=== PATIENT | female | born 1960 | race Caucasian/White ===

== ENCOUNTER 2024-09-25 12:17 | Inpatient (IN) | payer MEDICARE, OTHER ==
--- NOTE | 2024-09-25 13:12 | ED ---
Dizziness HPI - General Source: patient, RN notes reviewed Mode of arrival: wheelchair Limitations: no limitations - History of Present Illness MD Complaint: dizziness <Tony Lara - Last Filed: 09/25/24 13:08> - General Source: patient, RN notes reviewed Limitations: no limitations <Estiven Alvarado - Last Filed: 09/25/24 17:18> - General Chief Complaint: Dizziness Stated Complaint: dizziness,falls Time Seen by Provider: 09/25/24 12:30 - History of Present Illness Initial Comments: Quick note: This is a 64-year-old female presenting for constant dizziness x 2 days. Patient states she suffered a an unwitnessed fall with possible loss of consciousness last week Sunday and twice the next day on in her her apartment which has thin carpet, striking her head with significant neck and back pain as well as ongoing headache since that time. Patient endorses history of recurring dizziness since her COVID diagnosis years ago but has been able to live independently until worsening of symptoms the past several days. Patient states she sees a neurologist regarding bilateral hand paresthesia but is not normally evaluated for the intermittent dizziness. Patient states she also has a pain stimulator. (Tony Lara) Patient is a 64-year-old female present to the emergency department with concerns with dizziness. Patient has had some constant dizziness for the past several years since COVID-19 infection. Patient states symptoms worsened the past week. Patient did have 2 falls and does not recall them and questions if she passed out. Patient describes dizziness as a spinning type sensation. Patient did not hurt herself does not feel she broke anything during the fall. Patient states any little movements makes her dizziness worsen. Otherwise no confusion or weakness. Patient does have occasional blurred vision. (Estiven Alvarado) - Related Data Home Medications Medication Instructions Recorded Confirmed ALPRAZolam [Xanax] 0.5 mg PO HS 09/25/24 09/25/24 Dapagliflozin Propanediol [Farxiga] 5 mg PO HS 09/25/24 09/25/24 Dulaglutide [Trulicity] 3 mg SQ MO 09/25/24 09/25/24 Pregabalin [Lyrica] 100 mg PO BID 09/25/24 09/25/24 buPROPion XL [Wellbutrin XL] 300 mg PO DAILY 09/25/24 09/25/24 sitaGLIPtin [Januvia] 100 mg PO HS 09/25/24 09/25/24 Allergies Allergy/AdvReac Type Severity Reaction Status Date / Time amitriptyline AdvReac Nausea & Verified 09/25/24 16:31 Vomiting gabapentin AdvReac Nausea & Verified 09/25/24 16:31 Vomiting Review of Systems ROS Other: All systems not noted in ROS Statement are negative. <JaneTony - Last Filed: 09/25/24 13:08> ROS Other: All systems not noted in ROS Statement are negative. Constitutional: Denies: fever Eyes: Denies: eye pain ENT: Denies: ear pain Respiratory: Denies: cough, dyspnea Cardiovascular: Denies: chest pain Musculoskeletal: Denies: back pain Neurological: Reports: as per HPI, vertigo. Denies: headache <ChristianoEstiven - Last Filed: 09/25/24 17:18> ROS Statement: Those systems with pertinent positive or pertinent negative responses have been documented in the HPI. Past Medical History Past Medical History: Diabetes Mellitus Additional Past Medical History / Comment(s): chronic nerve pain (stimulator in place) History of Any Multi-Drug Resistant Organisms: None Reported Past Surgical History: Cholecystectomy Additional Past Surgical History / Comment(s): toe surgery, nerve biopsy, PE removal Past Psychological History: PTSD Smoking Status: Former smoker Past Alcohol Use History: None Reported Past Drug Use History: Marijuana <Tony Lara - Last Filed: 09/25/24 13:08> General Exam Limitations: no limitations <Tony Lara - Last Filed: 09/25/24 13:08> Limitations: no limitations General appearance: alert, in no apparent distress Head exam: Present: atraumatic, normocephalic Eye exam: Present: normal appearance, PERRL, EOMI. Absent: nystagmus Neck exam: Present: normal inspection, full ROM. Absent: tenderness Respiratory exam: Present: normal lung sounds bilaterally Cardiovascular Exam: Present: regular rate, normal rhythm GI/Abdominal exam: Present: soft. Absent: tenderness Extremities exam: Present: normal inspection Neurological exam: Present: alert, oriented X3, CN II-XII intact. Absent: motor sensory deficit Expanded Neurological exam: Present: protecting the airway Speech: Present: fluid speech Cranial nerves: EOM's Intact: Normal, Facial Sensation: Normal Motor strength exam: RUE: 5, LUE: 5, RLE: 5, LLE: 5 Eye Response: (4) open spontaneously Motor Response: (6) obeys commands Verbal Response: (5) oriented Psychiatric exam: Present: normal affect, normal mood Skin exam: Present: normal color <Estiven Alvarado - Last Filed: 09/25/24 17:18> - General Exam Comments Initial Comments: Visual Physical Exam Vital signs reviewed General: Well-appearing, nontoxic. Patient is distressed and tearful Head: Normocephalic, atraumatic Eyes: PERRLA, EOMI ENT: Airway patent Chest: Nonlabored breathing Skin: No visual rash, normal skin tone Neuro: Alert and oriented 3 Musculoskeletal: No gross abnormalities (Tony Lara) Course Vital Signs 09/25/24 09/25/24 12:19 16:34 Temperature 97.8 F 97.8 F Pulse Rate 94 78 Respiratory 18 18 Rate Blood Pressure 121/83 129/76 O2 Sat by Pulse 99 100 Oximetry EKG Findings - EKG Results: EKG: interpreted by ERMD, sinus rhythm, normal axis, normal QRS, normal ST/T <Estiven Alvarado - Last Filed: 09/25/24 17:18> Medical Decision Making <Tony Lara - Last Filed: 09/25/24 13:08> - Lab Data Result diagrams: 09/25/24 13:37 09/25/24 13:37 <Estiven Alvarado - Last Filed: 09/25/24 17:18> - Medical Decision Making I completed the quick note portion of this chart signed GENIA Carl (Tony Lara) Was pt. sent in by a medical professional or institution (KODY Mcelroy, POSTAL SUPERVISOR, urgent care, hospital, or longterm...) When possible be specific @ -No Did you speak to anyone other than the patient for history (EMS, parent, family, police, friend...)? What history was obtained from this source @ -No Did you review nursing and triage notes (agree or disagree)? Why? @ -I reviewed and agree with nursing and triage notes Were old charts reviewed (outside hosp., previous admission, EMS record, old EKG, old radiological studies, urgent care reports/EKG's, longterm records)? Report findings @ -No old charts were reviewed Differential Diagnosis (chest pain, altered mental status, abdominal pain women, abdominal pain men, vaginal bleeding, weakness, fever, dyspnea, syncope, headache, dizziness, GI bleed, back pain, seizure, CVA, palpatations, mental health, musculoskeletal)? @ -Differential Dizziness: Benign paroxysmal positional Vertigo, Meniere's disease, otitis media, acoustic neuroma, vertebrobasilar insufficiency, cerebellar stroke, encephalitis, hypovolemic, arrhythmia, coronary artery syndrome, anemia, this is not meant to be an all-inclusive list EKG interpreted by me (3pts min.). @ -As above X-rays interpreted by me (1pt min.). @ -Chest x-ray does not reveal acute abnormality CT interpreted by me (1pt min.). @ -CT scan of the brain without acute abnormality U/S interpreted by me (1pt. min.). @ -None done What testing was considered but not performed or refused? (CT, X-rays, U/S, labs)? Why? @ -None What meds were considered but not given or refused? Why? @ -None Did you discuss the management of the patient with other professionals (professionals i.e. , PA, POSTAL SUPERVISOR, lab, RT, psych nurse, geriatric social work professor, credentialing specialist, teacher, veterinary medical officer, insurance case manager)? Give summary @ -[facility] Dr. spencer to admit covering hospital call Was smoking cessation discussed for >3mins.? @ -No Was critical care preformed (if so, how long)? @ -No Were there social determinants of health that impacted care today? How? (En elessness, low income, unemployed, alcoholism, drug addiction, transportation, low edu. Level, literacy, decrease access to med. care, shelter, rehab)? @ -No Was there de-escalation of care discussed even if they declined (Discuss DNR or withdrawal of care, Hospice)? DNR status @ -No What co-morbidities impacted this encounter? (DM, HTN, Smoking, COPD, CAD, Cancer, CVA, ARF, Chemo, Hep., AIDS, mental health diagnosis, sleep apnea, morbid obesity)? @ -None Was patient admitted / discharged? Hospital course, mention meds given and route, prescriptions, significant lab abnormalities, going to OR and other pertinent info. @ -Patient presents with dizziness described as vertigo type symptoms. On reevaluation no significant improvement. Patient appears to have had 2 associated syncopal episode. Patient will be admitted with neuro consult. [place] orders written. Patient reevaluated and updated Undiagnosed new problem with uncertain prognosis? @ -No Drug Therapy requiring intensive monitoring for toxicity (Heparin, Nitro, Insulin, Cardizem)? @ -No Were any procedures done? @ -No Diagnosis/symptom? @ -Vertigo, syncope Acute, or Chronic, or Acute on Chronic? @ -Acute on chronic, acute Uncomplicated (without systemic symptoms) or Complicated (systemic symptoms)? @ -Default Side effects of treatment? @ -No Exacerbation, Progression, or Severe Exacerbation? @ -No Poses a threat to life or bodily function? How? (Chest pain, USA, AR, pneumonia, PE, COPD, DKA, ARF, appy, cholecystitis, CVA, Diverticulitis, Homicidal, Suicidal, threat to staff... and all critical care pts) @ -Threat to neurological function (Estiven Alvarado) - Lab Data Lab Results 09/25/24 09/25/24 09/25/24 Range/Units 13:37 13:37 13:37 WBC 7.4 (3.8-10.6) k/uL RBC 4.87 (3.80-5.40) m/uL Hgb 14.9 (11.4-16.0) gm/dL Hct 45.0 (34.0-46.0) % MCV 92.5 (80.0-100.0) fL MCH 30.5 (25.0-35.0) pg MCHC 33.0 (31.0-37.0) g/dL RDW 12.6 (11.5-15.5) % Plt Count 272 (150-450) k/uL MPV 8.1 Neutrophils % 60 % Lymphocytes % 30 % Monocytes % 5 % Eosinophils % 2 % Basophils % 1 % Neutrophils # 4.5 (1.3-7.7) k/uL Lymphocytes # 2.3 (1.0-4.8) k/uL Monocytes # 0.4 (0-1.0) k/uL Eosinophils # 0.2 (0-0.7) k/uL Basophils # 0.0 (0-0.2) k/uL PT 10.8 (10.0-12.5) sec INR 1.0 (<1.2) APTT 24.9 (22.0-30.0) sec Sodium 143 (137-145) mmol/L Potassium 4.2 (3.5-5.1) mmol/L Chloride 103 (98-107) mmol/L Carbon Dioxide 30 (22-30) mmol/L Anion Gap 10 mmol/L BUN 16 (7-17) mg/dL Creatinine 0.77 (0.52-1.04) mg/dL Est GFR (CKD-EPI)AfAm >90 (>60 ml/min/1.73 sqM) Est GFR (CKD-EPI)NonAf 81 (>60 ml/min/1.73 sqM) Glucose 135 H (74-99) mg/dL Calcium 9.9 (8.4-10.2) mg/dL Magnesium 2.1 (1.6-2.3) mg/dL Total Bilirubin 0.5 (0.2-1.3) mg/dL AST 23 (14-36) U/L ALT 23 (4-34) U/L Alkaline Phosphatase 71 (38-126) U/L Troponin I (0.000-0.034) ng/mL Total Protein 7.7 (6.3-8.2) g/dL Albumin 4.7 (3.5-5.0) g/dL 09/25/24 Range/Units 13:37 WBC (3.8-10.6) k/uL RBC (3.80-5.40) m/uL Hgb (11.4-16.0) gm/dL Hct (34.0-46.0) % MCV (80.0-100.0) fL MCH (25.0-35.0) pg MCHC (31.0-37.0) g/dL RDW (11.5-15.5) % Plt Count (150-450) k/uL MPV Neutrophils % % Lymphocytes % % Monocytes % % Eosinophils % % Basophils % % Neutrophils # (1.3-7.7) k/uL Lymphocytes # (1.0-4.8) k/uL Monocytes # (0-1.0) k/uL Eosinophils # (0-0.7) k/uL Basophils # (0-0.2) k/uL PT (10.0-12.5) sec INR (<1.2) APTT (22.0-30.0) sec Sodium (137-145) mmol/L Potassium (3.5-5.1) mmol/L Chloride (98-107) mmol/L Carbon Dioxide (22-30) mmol/L Anion Gap mmol/L BUN (7-17) mg/dL Creatinine (0.52-1.04) mg/dL Est GFR (CKD-EPI)AfAm (>60 ml/min/1.73 sqM) Est GFR (CKD-EPI)NonAf (>60 ml/min/1.73 sqM) Glucose (74-99) mg/dL Calcium (8.4-10.2) mg/dL Magnesium (1.6-2.3) mg/dL Total Bilirubin (0.2-1.3) mg/dL AST (14-36) U/L ALT (4-34) U/L Alkaline Phosphatase (38-126) U/L Troponin I <0.012 (0.000-0.034) ng/mL Total Protein (6.3-8.2) g/dL Albumin (3.5-5.0) g/dL Disposition <Tony Lara - Last Filed: 09/25/24 13:08> Is patient prescribed a controlled substance at d/c from ED?: No Time of Disposition: 16:16 <Estiven Alvarado - Last Filed: 09/25/24 17:18> Clinical Impression: Vertigo, Syncope Disposition: ADMITTED IP TO THIS HOSP
[2024-09-25 13:52] LABS: Basophils % (A) 1 %; Eosinophils # (A) 0.2 k/uL (0-0.7); Eosinophils % (A) 2 %; HGB 14.9 gm/dL (11.4-16.0); Lymphocytes # (A) 2.3 k/uL (1.0-4.8); Lymphocytes % (A) 30 %; MCH 30.5 pg (25.0-35.0); MCV 92.5 fL (80.0-100.0); Mean Platelet Volume 8.1; Monocytes # (A) 0.4 k/uL (0-1.0); Monocytes % (A) 5 %; Neutrophils # (A) 4.5 k/uL (1.3-7.7); Neutrophils % (A) 60 %; Platelet Count 272 k/uL (150-450); RBC 4.87 m/uL (3.80-5.40); RDW 12.6 % (11.5-15.5); WBC 7.4 k/uL (3.8-10.6)
[2024-09-25 14:16] LABS: Partial Thromboplastin Time 24.9 sec (22.0-30.0); Prothrombin Time 10.8 sec (10.0-12.5)
[2024-09-25 14:17] LABS: ALT 23 U/L (4-34); AST 23 U/L (14-36); African American GFR (CKD) >90 (>60 ml/min/1.73 sqM); Albumin 4.7 g/dL (3.5-5.0); Alkaline Phosphatase 71 U/L (38-126); Anion Gap 10 mmol/L; Blood Urea Nitrogen 16 mg/dL (7-17); Calcium 9.9 mg/dL (8.4-10.2); Carbon Dioxide 30 mmol/L (22-30); Chloride 103 mmol/L (98-107); Glucose 135 mg/dL (74-99); Magnesium 2.1 mg/dL (1.6-2.3); Non-African American GFR(CKD) 81 (>60 ml/min/1.73 sqM); Potassium 4.2 mmol/L (3.5-5.1); Sodium 143 mmol/L (137-145); Total Bilirubin 0.5 mg/dL (0.2-1.3); Total Protein 7.7 g/dL (6.3-8.2)
--- NOTE | 2024-09-25 14:37 | XR ---
EXAMINATION TYPE: XR chest 2V DATE OF EXAM: 09/25/2024 CLINICAL INDICATION: Female, 64 years old with history of Dizziness, TECHNIQUE: Frontal and lateral views of the chest are obtained. COMPARISON: None FINDINGS: There is no focal air space opacity, pleural effusion, or pneumothorax seen. The cardiac silhouette size is within normal limits. Cervical stimulator device is noted. Cholecystectomy clips a re seen. IMPRESSION: No acute cardiopulmonary process. [facility], , 09/25/2024 2:35 PM
[2024-09-25] MEDS: MECLIZINE 12.5 MG TAB PO STA ×2 (14:58→15:17)
[2024-09-25] MEDS: SODIUM CHLORIDE 0.9% 1,000 ML IV STA (14:59)
[2024-09-25] MEDS: METOCLOPRAMIDE 5 MG/ML 2 ML VIAL IVP STA (15:07)
--- NOTE | 2024-09-25 15:25 | CT ---
EXAMINATION TYPE: CT brain gila wo con DATE OF EXAM: 09/25/2024 COMPARISON: None CLINICAL INDICATION: Female, 64 years old with history of Dizziness, fall; PHH, Dizziness, Fall TECHNIQUE: CT scan of the head and cervical spine are performed without contrast. CT DLP: 1415.[address] CTDI: mGy Automated exposure control for dose reduction was used. FINDINGS: Head CT: Ventricles, basal cisterns and sulci over convexities within normal limits and there is no mass, mass effect or shift of midline structures. No abnormal density is seen throughout the brain parenchyma and there is no acute intra or extra-axia l hemorrhage. Posterior fossa including the brainstem, fourth ventricle and cerebellar pontine angles are grossly n ormal. The intraorbital contents appear normal and symmetric. The calvarium is intact. CT cervical spine: Craniovertebral junction relationships and prevertebral soft tissues are normal. The cervical vertebral segments are normal in height and alignment and there is no fracture subluxati on. The disc spaces are well-maintained in height and there is no significant degenerative disc disease. The bony cervical canal is widely patent and there is no bony encroachment of the neural foramina. There is a TENS unit in the posterior epidural space, the tip of which is at the level of C5. IMPRESSION: 1. Head CT: No acute bleed or mass effect. 2. CT cervical spine: No acute trauma. [facility], , 09/25/2024 3:22 PM
--- NOTE | 2024-09-25 15:29 | CT ---
EXAMINATION TYPE: CT angio head neck DATE OF EXAM: 09/25/2024 COMPARISON: None CLINICAL INDICATION: Female, 64 years old with history of Dizziness, fall; PHH, Dizziness, Fall TECHNIQUE: CTA scan of the head and neck is performed without and with IV Contrast, patient injected with 65 ml mL of Isovue 370, axial images are obtained, coronal and sagittal reformatted images are reviewed. 3D reconstructed images are created on an independent workstation and reviewed. 3-D post pr ocessing was performed CT DLP: 1883.[address] CTDI: mGy Automated exposure control for dose reduction was used. NASCET criteria was used in interpretation of this exam? FINDINGS: The brachiocephalic origins are widely patent and no significant stenosis. There is no significant stenosis of the common or internal carotid arteries within the neck. There is no stenosis of the vertebral arteries. Intracranially, there is no stenosis, segmental occlusion, sizable aneurysm sac or vascular malformat ion. IMPRESSION:. No significant abnormality seen. NASCET criteria was used in interpretation of this exam? [facility], Workstation: [id number] 09/25/2024 3:26 PM
[2024-09-25] MEDS ORDERED: NALOXONE 0.4 MG/ML 1 ML VIAL IV PRN (16:19)
[2024-09-25] MEDS: METOCLOPRAMIDE 10 MG TAB PO SCH (17:29)
[2024-09-25] MEDS: SCOPOLAMINE 1 MG/72 HR PATCH TRANSDERM STA (17:55)
[2024-09-25] MEDS: LINAGLIPTIN 5 MG TABLET PO SCH (20:31)
[2024-09-25] MEDS: ALPRAZolam 0.5 MG TAB PO SCH (20:31)
[2024-09-25] MEDS: DAPAGLIFLOZIN PROPANEDIOL 5 MG TABLET PO SCH (20:31)
[2024-09-25] MEDS: PREGABALIN 100 MG CAP PO SCH (20:31)
[2024-09-26] MEDS: buPROPion XL 300 MG TAB.ER.24H PO SCH (09:30)
[2024-09-26] MEDS ORDERED: DEXTROSE 50% SYRINGE 50 ML IVP PRN ×2 (12:54)
--- NOTE | 2024-09-26 12:55 | P.HPIM ---
History of Present Illness H&P Date: 09/26/24 History of present illness; patient is a 64-year-old lady with past medical history significant for diabetes mellitus, COVID-19 infection presented the ER because of worsening dizziness. Patient stated that she has been having dizziness for the last week. Dizziness is constant, denies any radiation with positioning of her head or moving from a sitting to a standing position. Patient denies any hearing loss. Patient did state that she fell twice over the course of last week and during 1 of those falls she hit her head resulting in significant neck and back pain. Patient was also complaining of headaches afterwards. Did not remember whether she passed out during those falls. There is no complaint of slurred speech. There is no complaint of weakness of any extremity. Because of persistent dizziness, patient came to the ER Initial lab work done in the ER showed WBC 7.4, hemoglobin 14.9, platelet count 272, sodium 142, potassium 4.2, BUN 16, creatinine 0.77, glucose 135, calcium 9.9, AST 23, ALT 23, troponin 0.012 EKG done in the ER showed heart rate of 86, no ST segment elevation or depression seen, no T-wave inversions seen. Chest x-ray done in the ER no acute cardiopulmonary process CT head done showed no acute intracranial process CT cervical spine done showed no acute cervical spine fracture CTA head and neck done showed no significant stenosis, aneurysm or thrombus in the intracranial circulation Patient admitted to internal medicine service REVIEW OF SYSTEMS: CONSTITUTIONAL: No fever, no malaise, no fatigue. HEENT: No recent visual problems or hearing problems. Denied any sore throat. CARDIOVASCULAR: No chest pain, orthopnea, PND, no palpitations, no syncope. PULMONARY: No shortness of breath, no cough, no hemoptysis. GASTROINTESTINAL: No diarrhea, no nausea, no vomiting, no abdominal pain. NEUROLOGICAL: As mentioned above HEMATOLOGICAL: Denies any bleeding or petechiae. GENITOURINARY: Denies any burning micturition, frequency, or urgency. MUSCULOSKELETAL/RHEUMATOLOGICAL: Denies any joint pain, swelling, or any muscle pain. ENDOCRINE: Denies any polyuria or polydipsia. The rest of the 14-point review of systems is negative. PHYSICAL EXAMINATION: GENERAL: The patient is alert and oriented x3, not in any acute distress. Well developed, well nourished. HEENT: Pupils are round and equally reacting to light. EOMI. No scleral icterus. No conjunctival pallor. Normocephalic, atraumatic. No pharyngeal erythema. No thyromegaly. CARDIOVASCULAR: S1 and S2 present. No murmurs, rubs, or gallops. PULMONARY: Chest is clear to auscultation, no wheezing or crackles. ABDOMEN: Soft, nontender, nondistended, normoactive bowel sounds. No palpable organomegaly. MUSCULOSKELETAL: No joint swelling or deformity. EXTREMITIES: No cyanosis, clubbing, or pedal edema. NEUROLOGICAL: Gross neurological examination did not reveal any focal deficits. SKIN: No rashes. Assessment and plan Dizziness Falls Syncope History of diabetes mellitus Monitor vital signs Monitor CBC Monitor CMP Continue telemetry monitoring Ordered neurochecks Ordered fall precaution Ordered 2D echo EEG ordered Ordered lipid panel Ordered HbA1c level Consult neurology Labs and medication were reviewed.. Continue same treatment. Continue with symptomatic treatment. Resume home medication. Monitor labs and vitals. DVT and GI prophylaxis. Further recommendations as per clinical course of the patient Dictation was produced using [employer] dictation software. please excuse any grammatical, word or spelling errors. Past Medical History Past Medical History: Diabetes Mellitus Additional Past Medical History / Comment(s): chronic nerve pain (stimulator in place in back); Septic from an open wound on left foot, left great toe removed in 2018; 2020 - COVID caused multiple blood clots in bilat lungs, had to be taken out. History of Any Multi-Drug Resistant Organisms: None Reported Past Surgical History: Cholecystectomy Additional Past Surgical History / Comment(s): toe surgery, nerve biopsy, PE removal Past Anesthesia/Blood Transfusion Reactions: No Reported Reaction Past Psychological History: PTSD Smoking Status: Former smoker Past Alcohol Use History: None Reported Past Drug Use History: Marijuana Medications and Allergies Home Medications Medication Instructions Recorded Confirmed Type ALPRAZolam [Xanax] 0.5 mg PO HS 09/25/24 09/25/24 History Dapagliflozin Propanediol [Farxiga] 5 mg PO HS 09/25/24 09/25/24 History Dulaglutide [Trulicity] 3 mg SQ MO 09/25/24 09/25/24 History Pregabalin [Lyrica] 100 mg PO BID 09/25/24 09/25/24 History buPROPion XL [Wellbutrin XL] 300 mg PO DAILY 09/25/24 09/25/24 History sitaGLIPtin [Januvia] 100 mg PO HS 09/25/24 09/25/24 History Allergies Allergy/AdvReac Type Severity Reaction Status Date / Time amitriptyline AdvReac Nausea & Verified 09/25/24 16:31 Vomiting gabapentin AdvReac Nausea & Verified 09/25/24 16:31 Vomiting Physical Exam Vitals: Vital Signs Temp Pulse Pulse Resp BP BP BP 09/26/24 08:00 16 09/26/24 07:00 97.9 F 74 16 104/68 09/26/24 03:51 97.5 F L 76 14 89/52 09/25/24 22:13 98.4 F 75 17 117/73 09/25/24 21:28 97.9 F 73 17 106/70 09/25/24 18:14 87 18 104/72 09/25/24 16:34 97.8 F 78 18 129/76 Pulse Ox 09/26/24 08:00 09/26/24 07:00 98 09/26/24 03:51 98 09/25/24 22:13 100 09/25/24 21:28 100 09/25/24 18:14 99 09/25/24 16:34 100 Intake and Output 09/25/24 09/26/24 09/26/24 22:59 06:59 14:59 Intake Total 221 Balance 221 Intake: Oral 221 Other: # Voids 1 1 1 Weight 84.822 kg Results CBC & Chem 7: 09/25/24 13:37 09/25/24 13:37 Labs: Abnormal Lab Results - Last 24 Hours (Table) 09/25/24 Range/Units 13:37 Glucose 135 H (74-99) mg/dL
[2024-09-26 13:02] LABS: Glucose,Whole Blood 168 mg/dL (70-110)
[2024-09-26] MEDS: MECLIZINE 25 MG TAB PO PRN (13:30)
--- NOTE | 2024-09-26 15:33 | P.CNNES ---
History of Present Illness Consult date: 09/26/24 Requesting physician: Estvien Alvarado Reason for Consult: vertigo with syncope History of Present Illness: This is a 64 year-old woman who presents to the emergency department because of worsening dizziness and fall. She stated she had underlying history of COVID-19 since 2019 and since then has been having neuropathy and been feeling dizzy. She feels last week her dizziness worsened and she feel dizzy, worse with moveme nt and had hard time describing it. She denies any nausea or vomiting. She felt was worse with falls. She does not recall if she lost consciousness. Denies focal weakness, visual disturbance. Denies history of seizure. She had underlying DM and had EMG with NCS by her neurology team (see's Dr. Marley's P.A.) and is not awake of result. She had MRI Brain even with pain stimulator and was told normal. Some of the work-up during this hospital visit consisted of: Had one time episode of low blood pressure of 89/52. cbc with diff, chemistry panel is within normal limits except slight elevated serum glucose 135. CT head: No acute bleed or mass effect. I personally reviewed CT head and agree with report. CT cervical spine: No acute trauma. CTA head and neck: No significant abnormality. Review of Systems As per HPI. Past Medical History Past Medical History: Diabetes Mellitus Additional Past Medical History / Comment(s): chronic nerve pain (stimulator in place in back); Septic from an open wound on left foot, left great toe removed in 2018; 2020 - COVID caused multiple blood clots in bilat lungs, had to be taken out. History of Any Multi-Drug Resistant Organisms: None Reported Past Surgical History: Cholecystectomy Additional Past Surgical History / Comment(s): toe surgery, nerve biopsy, PE removal Past Anesthesia/Blood Transfusion Reactions: No Reported Reaction Past Psychological History: PTSD Smoking Status: Former smoker Past Alcohol Use History: None Reported Past Drug Use History: Marijuana Medications and Allergies Home Medications Medication Instructions Recorded Confirmed Type ALPRAZolam [Xanax] 0.5 mg PO HS 09/25/24 09/25/24 History Dapagliflozin Propanediol [Farxiga] 5 mg PO HS 09/25/24 09/25/24 History Dulaglutide [Trulicity] 3 mg SQ MO 09/25/24 09/25/24 History Pregabalin [Lyrica] 100 mg PO BID 09/25/24 09/25/24 History buPROPion XL [Wellbutrin XL] 300 mg PO DAILY 09/25/24 09/25/24 History sitaGLIPtin [Januvia] 100 mg PO HS 09/25/24 09/25/24 History Allergies Allergy/AdvReac Type Severity Reaction Status Date / Time amitriptyline AdvReac Nausea & Verified 09/25/24 16:31 Vomiting gabapentin AdvReac Nausea & Verified 09/25/24 16:31 Vomiting Physical Examination - Vital Signs Vital Signs: Vital Signs Temp Pulse Pulse Pulse Pulse Pulse Resp 09/26/24 14:32 98.3 F 77 99 81 16 09/26/24 08:00 16 09/26/24 07:00 97.9 F 74 16 09/26/24 03:51 97.5 F L 76 14 09/25/24 22:13 98.4 F 75 17 09/25/24 21:28 97.9 F 73 17 09/25/24 18:14 87 18 09/25/24 16:34 97.8 F 78 18 BP BP BP BP BP BP Pulse Ox 09/26/24 14:32 122/80 102/66 123/77 100 09/26/24 08:00 09/26/24 07:00 104/68 98 09/26/24 03:51 89/52 98 09/25/24 22:13 117/73 100 09/25/24 21:28 106/70 100 09/25/24 18:14 104/72 99 09/25/24 16:34 129/76 100 Intake and Output 09/26/24 09/26/24 09/26/24 06:59 14:59 22:59 Intake Total 221 Balance 221 Intake: Oral 221 Other: # Voids 1 1 GENERAL: The patient is lying in bed and is not in acute distress. NEUROLOGICAL: Higher mental function: The patient is awake, alert, oriented to self, place and time. Patient is following commands. No aphasia and no neglect. Cranial nerves: The pupils are round, equal and reactive to light and accommodation. Visual huffman are full to confrontation throughout. Extraocular movement is intact no nystagmus is noted. Facial sensation is normal to touch throughout. The facial strength is normal throughout. Hearing is normal bilaterally to hand rub. Tongue is midline and moved [id number] without any difficulty. No dysarthria is noted. Shoulder shrug is normal bilaterally. Motor: The strength is 5 over 5 throughout. Normal tone and bulk. Is wearing gloves of bilateral hands for her neuropathy. Cerebellum: Subtle ataxia finger to nose on the left. Otherwise normal on the right. Sensation: Sensation is normal to touch throughout. Reflexes (right/left): Limited since was resisting on numerous attempts. Plantars are mute bilaterally. Results - Laboratory Findings CBC and BMP: 09/25/24 13:37 09/25/24 13:37 Abnormal Lab Findings: Abnormal Labs 09/25/24 09/26/24 13:37 13:00 Glucose 135 H POC Glucose (mg/dL) 168 H Assessment and Plan Assessment: This is a 64 y/o woman with hx of chronic Dizziness since COVID-19 in 2019 but has worsened since last week with fall and unsure if lost consciousness. On examination had subtle ataxia on the left upper. She has pain pump for her neuropathy. Worsening of dizziness likely due to worsening neuropathy and has hypotension Fall likely due to above Chronic dizziness Hx of Neuropathy Hx of COVID-19 Plan: I ordered orthostatic vitals. Ordered MRI Brain and cervical spine. ordered routine EEG. Ordered TSH, vitamin B12, folate, vitamin B6. primary team ordered HbA1c. I consulted PT and OT Will defer the rest of medical management to primary team. Thank you for the consultation. Dr. Bernal will resume neurology service tomorrow A.M. Time with Patient: Greater than 30
[2024-09-26 17:36] LABS: Glucose,Whole Blood 161 mg/dL (70-110)
[2024-09-26] MEDS: INSULIN LISPRO (HumaLOG) 100 UNIT/ML 10 mL VL SQ SCH (17:59)
[2024-09-26 20:13] LABS: Glucose,Whole Blood 124 mg/dL (70-110)
--- NOTE | 2024-09-26 20:36 | CA ---
Transthoracic Echo Report Name: Peter Prince Age: 64 Gender: F : 1960 Exam Date: 09/26/2024 13:38 Exam Location: [facility] Ht (in): 69 Wt (lb): 187 Ordering Physician: Calvin Woodall MD Attending/Referring Phys: Loss Prevention Detective Fely Gonzales RDCS Procedure CPT: Indications: Syncope Cardiac Hx: Diabetes Technical Quality: Good Contrast 1: Total Dose (mL): Contrast 2: Total Dose (mL): MEASUREMENTS (Male / Female) Normal Values 2D ECHO LV Diastolic Diameter PLAX 4.2 cm 4.2 - 5.9 / 3.9 - 5.3 cm LV Systolic Diameter PLAX 2.8 cm IVS Diastolic Thickness 0.9 cm 0.6 - 1.0 / 0.6 - 0.9 cm LVPW Diastolic Thickness 0.9 cm 0.6 - 1.0 / 0.6 - 0.9 cm LV Relative Wall Thickness 0.4 RV Internal Dim ED PLAX 2.8 cm LVOT Diameter 1.9 cm LA Systolic Diameter LX 3.7 cm 3.0 - 4.0 / 2.7 - 3.8 cm LV Diastolic Volume MOD BP 87.2 cm??? 67 - 155 / 56 - 104 cm??? LV Systolic Volume MOD BP 35.5 cm??? 22 - 58 / 19 - 49 cm??? LV Ejection Fraction MOD BP 59.3 % >= 55 % LV Cardiac Index MOD BP 1766.3 cm???/min???m??? LV Diastolic Volume MOD 4C 90.9 cm??? LV Systolic Volume MOD 4C 38.6 cm??? LV Ejection Fraction MOD 4C 57.5 % LV Cardiac Index MOD 4C 1785.8 cm???/min???m??? LV Diastolic Length 4C 7.9 cm LV Systolic Length 4C 6.8 cm LV Diastolic Volume MOD 2C 81.4 cm??? LV Systolic Volume MOD 2C 27.8 cm??? LV Ejection Fraction MOD 2C 65.9 % LV Cardiac Index MOD 2C 1833.3 cm???/min???m??? LV Diastolic Length 2C 7.6 cm LV Systolic Length 2C 5.8 cm LA Volume 47.6 cm??? 18 - 58 / 22 - 52 cm??? LA Volume Index 23.2 cm???/m??? 16 - 28 cm???/m??? DOPPLER MV Area PHT 3.3 cm??? Mitral E Point Velocity 47.4 cm/s Mitral A Point Velocity 66.6 cm/s Mitral E to A Ratio 0.7 MV Deceleration Time 228.5 ms TR Peak Velocity 106.2 cm/s TR Peak Gradient 4.5 mmHg FINDINGS Left Ventricle Left ventricular ejection fraction is estimated at 60%. Normal left ventricular systolic function with no obvious regional wall motion abnormalities. Left ventricular wall thickness normal. Right Ventricle Normal right ventricular sizright ventricular systolic pressure within normal limits. e and function. Right Atrium Normal right atrial size. Left Atrium Normal left atrial size. Mitral Valve Structurally normal mitral valve. Mitral valve thickened. No mitral stenosis. No mitral regurgitation. Aortic Valve Trileaflet aortic valve. No aortic stenosis. Mild aortic regurgitation. Tricuspid Valve Structurally normal tricuspid valve. No tricuspid stenosis. Trace tricuspid regurgitation. Pulmonic Valve Structurally normal pulmonic valve. No pulmonic stenosis. Trace pulmonic regurgitation. Pericardium No pericardial effusion. Aorta Normal size aortic root and proximal ascending aorta. CONCLUSIONS Normal biventricular systolic function Mild aortic regurgitation was identified No pericardial effusion Previewed by: Dr. Vikash Paiz MD (Electronically Signed) Final Date: 26 September 2024 20:35
--- NOTE | 2024-09-26 23:59 | EEG ---
ELECTROENCEPHALOGRAM REPORT CLINICAL HISTORY: This is a 64-year-old woman with recent fall. The video EEG is obtained to evaluate for seizure epileptiform activity. RELEVANT MEDICATIONS: 1. Wellbutrin. 2. Lyrica. 3. Xanax. EEG TYPE: This is a routine 21-channel EEG with video using the 10/20 electrode placement system. DESCRIPTION: Wakefulness is only obtained. During awake state, the posterior-dominant rhythm consists of [id number] voltage of 9.5 to 10.5 hertz activity that is well modulated and well sustained. There is no physiological stage 2 sleep architecture. There is no focal slowing. Interictal and ictal is none. ACTIVATION PROCEDURE: Photic stimulation did not evoke a posterior driving response. There is no abnormality during the photic stimulation. Hyperventilation is not performed. CLINICAL INTERPRETATION: This is a normal routine EEG during awake state. There is no focal slowing, epileptiform discharge, or seizure on the EEG. A normal routine EEG does not rule out underlying epilepsy. Clinical correlation is recommended. MMAIDEE / IJN: [id number] /
[2024-09-27 06:18] LABS: Glucose,Whole Blood 126 mg/dL (70-110)
[2024-09-27 10:26] LABS: Basophils # (A) 0.06 X 10*3/uL (0.00-0.10); Eosinophils # (A) 0.16 X 10*3/uL (0.04-0.35); Eosinophils % (A) 2.6 %; HCT 42.5 % (37.2-46.3); HGB 13.9 g/dL (12.0-15.0); Lymphocytes # (A) 2.86 X 10*3/uL (0.90-5.00); Lymphocytes % (A) 45.6 %; MCHC 32.7 g/dL (32.0-37.0); MCV 91.8 FL (80.0-97.0); Mean Platelet Volume 11.3 FL (9.5-12.2); Monocytes # (A) 0.48 X 10*3/uL (0.20-1.00); Monocytes % (A) 7.7 %; NRBC Per 100 WBC 0 X 10*3/uL (0.00-0.01); Neutrophils # (A) 2.69 X 10*3/uL (1.80-7.70); Neutrophils % (A) 42.8 %; Platelet Count 246 X 10*3/uL (140-440); RBC 4.63 X 10*6/uL (4.10-5.20); RDW 13.1 % (11.5-14.5); WBC 6.27 X 10*3/uL (4.50-10.00)
[2024-09-27 12:12] LABS: Glucose,Whole Blood 191 mg/dL (70-110)
[2024-09-27] MEDS: MIDODRINE 5 MG TAB PO SCH (12:50)
[2024-09-27 14:02] LABS: ALT 21 U/L (8-44); AST 24 U/L (13-35); Albumin 4.2 g/dL (3.8-4.9); Albumin/Globulin Ratio 1.75 Ratio (1.60-3.17); Alkaline Phosphatase 68 U/L (41-126); Blood Urea Nitrogen 16.4 mg/dL (9.0-27.0); Calcium 9.3 mg/dL (8.7-10.3); Carbon Dioxide 25.4 mmol/L (21.6-31.8); Chloride 112 mmol/L (96-109); Chol/HDL Ratio 4.23 Ratio; Globulin 2.4 g/dL (1.6-3.3); Glucose 106 mg/dL (70-110); LDL Cholesterol,Calculated 94.8 mg/dL (0.0-131.0); Potassium 3.6 mmol/L (3.5-5.5); Sodium 150 mmol/L (135-145); Total Bilirubin 0.3 mg/dL (0.3-1.2); Total Protein 6.6 g/dL (6.2-8.2)
--- NOTE | 2024-09-27 15:02 | P.PN ---
Subjective Progress Note Date: 09/27/24 History of present illness; patient is a 64-year-old lady with past medical history significant for diabetes mellitus, COVID-19 infection presented the ER because of worsening dizziness. Patient stated that she has been having dizziness for the last week. Dizziness is constant, denies any radiation with positioning of her head or moving from a sitting to a standing position. Patient denies any hearing loss. Patient did state that she fell twice over the course of last week and during 1 of those falls she hit her head resulting in significant neck and back pain. Patient was also complaining of headaches afterwards. Did not remember whether she passed out during those falls. There is no complaint of slurred speech. There is no complaint of weakness of any extremity. Because of persistent dizziness, patient came to the ER Initial lab work done in the ER showed WBC 7.4, hemoglobin 14.9, platelet count 272, sodium 142, potassium 4.2, BUN 16, creatinine 0.77, glucose 135, calcium 9.9, AST 23, ALT 23, troponin 0.012 EKG done in the ER showed heart rate of 86, no ST segment elevation or de pression seen, no T-wave inversions seen. Chest x-ray done in the ER no acute cardiopulmonary process CT head done showed no acute intracranial process CT cervical spine done showed no acute cervical spine fracture CTA head and neck done showed no significant stenosis, aneurysm or thrombus in the intracranial circulation Patient admitted to internal medicine service 09/27/2024 Patient is evaluated today in follow up on the medical floor. Sitting up at the edge of the bed. Continues to have profound dizziness and unable to tolerate much activity and has been started on midodrine TID as patients orthostatic vitals were found to be positive from 126 systolic to 90 systolic when standing. Neurology not recommending to transfer for MRI at this time and felt it can be done on an outpatient basis. Sodium today 150, BUN 16.4, creatinine 0.8. TSH elevated 6.680. Echocardiogram revealing normal EF. and EEG with no seizure or epileptiform activity. REVIEW OF SYSTEMS: CONSTITUTIONAL: No fever, no malaise, no fatigue. HEENT: No recent visual problems or hearing problems. Denied any sore throat. CARDIOVASCULAR: No chest pain, orthopnea, PND, no palpitations, no syncope. PULMONARY: No shortness of breath, no cough, no hemoptysis. GASTROINTESTINAL: No diarrhea, no nausea, no vomiting, no abdominal pain. NEUROLOGICAL: As mentioned above PHYSICAL EXAMINATION: GENERAL: The patient is alert and oriented x3, not in any acute distress. Well developed, well nourished. HEENT: Pupils are round and equally reacting to light. EOMI. No scleral icterus. No conjunctival pallor. Normocephalic, atraumatic. No pharyngeal erythema. No thyromegaly. CARDIOVASCULAR: S1 and S2 present. No murmurs, rubs, or gallops. PULMONARY: Chest is clear to auscultation, no wheezing or crackles. ABDOMEN: Soft, nontender, nondistended, normoactive bowel sounds. No palpable organomegaly. MUSCULOSKELETAL: No joint swelling or deformity. EXTREMITIES: No cyanosis, clubbing, or pedal edema. Patient with mild peripheral edema NEUROLOGICAL: Gross neurological examination did not reveal any focal deficits. SKIN: No rashes. Assessment and plan Dizziness with concern for BPPH possible autonomic dysfunction Positive orthostatic vitals started on oral midodrine Falls due to hypotension Syncope from above History of diabetes mellitus Elevated TSH and pending T4 level Hypernatremia, hypovolemic Plan Monitor vital signs Start D5 water at 50 mls/hr for the hypernatremia Add midodrine 5 mg TID Compression stockings to be applied bilaterally. Continue telemetry monitoring Ordered neurochecks TSH elevated and free T4 pending Check AM cortisol level rule out adrenal insufficiency Repeat orthostatic pressures in the AM Brain MRI to be done on an outpatient basis. Consult neurology Dictation was produced using [employer] dictation software. please excuse any grammatical, word or spelling errors. The impression and plan of care has been dictated by Fabiola Cheung, Nurse Practitioner as directed. Dr. Toñito MD I have performed a history and physical examination and medical decision making of this patient, discussed the same with the dictator, and agree with the dictators assessment and plan as written, documented as a scribe. Based on total visit time, I have performed more than 50% of this visit. Objective - Vital Signs Vital signs: Vital Signs Temp 97.6 F 09/27/24 07:00 Pulse 78 09/27/24 10:59 Resp 16 09/27/24 13:41 BP 125/74 09/27/24 10:59 Pulse Ox 99 09/27/24 07:00 FiO2 Intake & Output 03/14/25 03/15/25 03/15/25 18:59 06:59 18:59 Intake Total 339 120 Balance 339 120 Intake: Oral 339 120 Other: Voiding Method Toilet # Voids 1 1 - Labs CBC & Chem 7: 09/27/24 06:19 09/27/24 06:19 Labs: Abnormal Lab Results - Last 24 Hours (Table) 09/26/24 09/26/24 09/27/24 Range/Units 17:32 20:12 06:17 Sodium (135-145) mmol/L Chloride (96-109) mmol/L Anion Gap (4.00-12.00) mmol/L BUN/Creatinine Ratio (12.00-20.00) Ratio POC Glucose (mg/dL) 161 H 124 H 126 H (70-110) mg/dL Hemoglobin A1c (<=6.0) % Triglycerides (0.00-149.00) mg/dL VLDL Cholesterol, Calc (5.00-40.00) mg/dL Vitamin B12 (200.0-944.0) pg/mL TSH (0.350-5.500) UIU/ML 09/27/24 09/27/24 09/27/24 Range/Units 06:19 06:19 12:11 Sodium 150 H (135-145) mmol/L Chloride 112 H (96-109) mmol/L Anion Gap 12.60 H (4.00-12.00) mmol/L BUN/Creatinine Ratio 20.50 H (12.00-20.00) Ratio POC Glucose (mg/dL) 191 H (70-110) mg/dL Hemoglobin A1c 7.2 H (<=6.0) % Triglycerides 213.00 H (0.00-149.00) mg/dL VLDL Cholesterol, Calc 42.60 H (5.00-40.00) mg/dL Vitamin B12 1025.0 H (200.0-944.0) pg/mL TSH 6.680 H (0.350-5.500) UIU/ML Assessment and Plan Time with Patient: Less than 30
--- NOTE | 2024-09-27 15:37 | P.PN ---
Subjective Progress Note Date: 09/27/24 The patient is a 64-year-old female who is seen in neurologic follow-up on September 27, 2024, in cross coverage for Dr. Bae, in collaboration with Nella Navarro, via teleneurology. Interim history includes continued dizziness. The patient reports that she has been experiencing a lightheaded feeling, especially when upright walking around, since her COVID-19 infection in 2019. Orthostatic vitals have been checked and have been found to be positive for orthostatic hypotension. Labs ordered by Dr. Bae have returned. TSH is elevated at 6.68 however free T4 is normal at 1.19. Vitamin B12 level is 1025. Vitamin B6 is pending. Triglycerides elevated at 213. Objective - Vital Signs Vital signs: Vital Signs Temp 97.6 F 09/27/24 07:00 Pulse 78 09/27/24 10:59 Resp 16 09/27/24 13:41 BP 125/74 09/27/24 10:59 Pulse Ox 99 09/27/24 07:00 FiO2 Intake & Output 09/26/24 09/27/24 09/27/24 18:59 06:59 18:59 Intake Total 339 120 Balance 339 120 Intake: Oral 339 120 Other: Voiding Method Toilet # Voids 1 1 - Exam NEUROLOGICAL: Higher mental function: The patient is awake, alert, oriented to self, place and time. Patient is following commands. No aphasia and no neglect. Cranial nerves: The pupils are round, equal and reactive to light and accommodation. Visual huffman are full to confrontation throughout. Extraocular movement is intact no nystagmus is noted. Facial sensation is normal to touch throughout. The facial strength is normal throughout. Hearing is normal bilaterally to hand rub. Tongue is midline and moved [id number] without any difficulty. No dysarthria is noted. Shoulder shrug is normal bilaterally. Motor: The strength is 5 over 5 throughout. Normal tone and bulk. Is wearing gloves of bilateral hands for her neuropathy. Cerebellum: Subtle ataxia finger to nose on the left. Otherwise normal on the right. Sensation: Sensation is normal to touch throughout. - Labs CBC & Chem 7: 09/27/24 06:19 09/27/24 06:19 Labs: Abnormal Lab Results - Last 24 Hours (Table) 09/26/24 09/26/24 09/27/24 Range/Units 17:32 20:12 06:17 Sodium (135-145) mmol/L Chloride (96-109) mmol/L Anion Gap (4.00-12.00) mmol/L BUN/Creatinine Ratio (12.00-20.00) Ratio POC Glucose (mg/dL) 161 H 124 H 126 H (70-110) mg/dL Hemoglobin A1c (<=6.0) % Triglycerides (0.00-149.00) mg/dL VLDL Cholesterol, Calc (5.00-40.00) mg/dL Vitamin B12 (200.0-944.0) pg/mL TSH (0.350-5.500) UIU/ML 09/27/24 09/27/24 09/27/24 Range/Units 06:19 06:19 12:11 Sodium 150 H (135-145) mmol/L Chloride 112 H (96-109) mmol/L Anion Gap 12.60 H (4.00-12.00) mmol/L BUN/Creatinine Ratio 20.50 H (12.00-20.00) Ratio POC Glucose (mg/dL) 191 H (70-110) mg/dL Hemoglobin A1c 7.2 H (<=6.0) % Triglycerides 213.00 H (0.00-149.00) mg/dL VLDL Cholesterol, Calc 42.60 H (5.00-40.00) mg/dL Vitamin B12 1025.0 H (200.0-944.0) pg/mL TSH 6.680 H (0.350-5.500) UIU/ML Assessment and Plan Assessment: This is a 64 y/o woman with hx of chronic Dizziness since COVID-19 in 2019 but has worsened since last week with fall and unsure if lost consciousness. Chronic, waxing and waning dizziness since COVID-19 infection-consider Long COVID. Orthostatic vitals are positive. Hx of Neuropathy Hx of COVID-19 Plan: 1. Begin midodrine 5 mg 1 tablet twice daily. This dosing may be increased if needed 2. Advised patient to continue to wear support hose, consider thigh-high support hose 3. Patient is advised to increase fluid intake 4. Continue meds for neuropathic pain 5. MRI of the brain is not needed as an inpatient, this may be done as an outpatient. The patient should follow-up with neurology and/or cardiology regarding orthostatic hypotension The patient is neurologically stable for discharge, when deemed clear by medical team Time with Patient: Greater than 30 (45 minutes were spent caring for this patient today including, obtaining history, examining the patient, reviewing imaging, chart documentation, labs, placing orders and creating this note)
[2024-09-27] MEDS: DEXTROSE 5% IN WATER 1,000 ML IV SCH (16:03)
[2024-09-27 17:08] LABS: Glucose,Whole Blood 177 mg/dL (70-110)
[2024-09-27 19:07] LABS: Glucose,Whole Blood 198 mg/dL (70-110)
[2024-09-28 05:57] LABS: Glucose,Whole Blood 110 mg/dL (70-110)
[2024-09-28 09:31] LABS: BUN/Creat Ratio 21.22 Ratio (12.00-20.00); Blood Urea Nitrogen 19.1 mg/dL (9.0-27.0); Calcium 9.1 mg/dL (8.7-10.3); Carbon Dioxide 24.5 mmol/L (21.6-31.8); Chloride 106 mmol/L (96-109); Glucose 105 mg/dL (70-110); Potassium 4.3 mmol/L (3.5-5.5); Sodium 142 mmol/L (135-145)
[2024-09-28 11:56] LABS: Glucose,Whole Blood 169 mg/dL (70-110)
--- NOTE | 2024-09-28 12:52 | P.PN ---
Subjective Progress Note Date: 09/28/24 History of present illness; patient is a 64-year-old lady with past medical history significant for diabetes mellitus, COVID-19 infection presented the ER because of worsening dizziness. Patient stated that she has been having dizziness for the last week. Dizziness is constant, denies any radiation with positioning of her head or moving from a sitting to a standing position. Patient denies any hearing loss. Patient did state that she fell twice over the course of last week and during 1 of those falls she hit her head resulting in significant neck and back pain. Patient was also complaining of headaches afterwards. Did not remember whether she passed out during those falls. There is no complaint of slurred speech. There is no complaint of weakness of any extremity. Because of persistent dizziness, patient came to the ER Initial lab work done in the ER showed WBC 7.4, hemoglobin 14.9, platelet count 272, sodium 142, potassium 4.2, BUN 16, creatinine 0.77, glucose 135, calcium 9.9, AST 23, ALT 23, troponin 0.012 EKG done in the ER showed heart rate of 86, no ST segment elevation or de pression seen, no T-wave inversions seen. Chest x-ray done in the ER no acute cardiopulmonary process CT head done showed no acute intracranial process CT cervical spine done showed no acute cervical spine fracture CTA head and neck done showed no significant stenosis, aneurysm or thrombus in the intracranial circulation Patient admitted to internal medicine service 09/27/2024 Patient is evaluated today in follow up on the medical floor. Sitting up at the edge of the bed. Continues to have profound dizziness and unable to tolerate much activity and has been started on midodrine TID as patients orthostatic vitals were found to be positive from 126 systolic to 90 systolic when standing. Neurology not recommending to transfer for MRI at this time and felt it can be done on an outpatient basis. Sodium today 150, BUN 16.4, creatinine 0.8. TSH elevated 6.680. Echocardiogram revealing normal EF. and EEG with no seizure or epileptiform activity. 09/28/2024 Patient is evaluated today in follow up resting in bed. She is not having much peripheral edema. Continues to report significant intractible dizziness. She states she leaned over when on the toilet to pick something up and states she almost passed out. Midodrine was added yesterday and patient continues on meclizine q6h. Orthovitals are better. Sodium improved to 137, potassium 4.4, BUN 65.3, creatinine 2.9. AM cortisol 7.1. TSH 6.680 however free T4 1.19. Patient states she wants to get diagnosed she has been dizzy for over 2 years. Has undergone extensive work up at [facility] including tilt table testing vestibular testing etc. Had a brain MRI at one point and she cannot recall where this was done so unable to obtain reports. REVIEW OF SYSTEMS: CONSTITUTIONAL: No fever, no malaise, no fatigue. HEENT: No recent visual problems or hearing problems. Denied any sore throat. CARDIOVASCULAR: No chest pain, orthopnea, PND, no palpitations, no syncope. PULMONARY: No shortness of breath, no cough, no hemoptysis. GASTROINTESTINAL: No diarrhea, no nausea, no vomiting, no abdominal pain. NEUROLOGICAL: As mentioned above PHYSICAL EXAMINATION: GENERAL: The patient is alert and oriented x3, not in any acute distress. Well developed, well nourished. HEENT: Pupils are round and equally reacting to light. EOMI. No scleral icterus. No conjunctival pallor. Normocephalic, atraumatic. No pharyngeal erythema. No thyromegaly. CARDIOVASCULAR: S1 and S2 present. No murmurs, rubs, or gallops. PULMONARY: Chest is clear to auscultation, no wheezing or crackles. ABDOMEN: Soft, nontender, nondistended, normoactive bowel sounds. No palpable organomegaly. MUSCULOSKELETAL: No joint swelling or deformity. EXTREMITIES: No cyanosis, clubbing, or pedal edema. Patient with mild peripheral edema NEUROLOGICAL: Gross neurological examination did not reveal any focal deficits. SKIN: No rashes. Assessment and plan Dizziness with concern for BPPH possible autonomic dysfunction Positive orthostatic vitals started on oral midodrine Falls due to hypotension Syncope from above History of diabetes mellitus Elevated TSH and normal T4 Hypernatremia, hypovolemic Plan Change fluids to normal saline at 50 mls. Monitor vital signs and ortho Qshift Continue midodrine 5 mg TID Compression stockings to be applied bilaterally. Continue telemetry monitoring Ordered neurochecks Add levothyroxine 25 mcg daily AM cortisol level normal Consult cardiology as patient seemed to have a vasovagal episode while on the toilet today. Repeat BMP in the AM Brain MRI to be done on an outpatient basis. Neurology following Dictation was produced using [employer] dictation software. please excuse any grammatical, word or spelling errors. The impression and plan of care has been dictated by Fabiola Cheung, Nurse Practitioner as directed. Dr. Toñito MD I have performed a history and physical examination and medical decision making of this patient, discussed the same with the dictator, and agree with the dictators assessment and plan as written, documented as a scribe. Based on total visit time, I have performed more than 50% of this visit. Objective - Vital Signs Vital signs: Vital Signs Temp 98.0 F 09/28/24 07:00 Pulse 85 09/28/24 11:24 Resp 15 09/28/24 08:00 BP 100/68 09/28/24 11:24 Pulse Ox 96 09/28/24 08:07 FiO2 Intake & Output 09/27/24 09/28/24 09/28/24 18:59 06:59 18:59 Intake Total 356 Balance 356 Intake: Oral 356 Other: Voiding Method Toilet Toilet Toilet # Voids 2 - Labs CBC & Chem 7: 09/27/24 06:19 09/28/24 04:16 Labs: Abnormal Lab Results - Last 24 Hours (Table) 09/27/24 09/27/24 09/27/24 Range/Units 06:19 17:07 19:05 Sodium 150 H (135-145) mmol/L Chloride 112 H (96-109) mmol/L Anion Gap 12.60 H (4.00-12.00) mmol/L BUN/Creatinine Ratio 20.50 H (12.00-20.00) Ratio POC Glucose (mg/dL) 177 H 198 H (70-110) mg/dL Triglycerides 213.00 H (0.00-149.00) mg/dL VLDL Cholesterol, Calc 42.60 H (5.00-40.00) mg/dL Vitamin B12 1025.0 H (200.0-944.0) pg/mL TSH 6.680 H (0.350-5.500) UIU/ML 09/28/24 09/28/24 Range/Units 04:16 11:55 Sodium (135-145) mmol/L Chloride (96-109) mmol/L Anion Gap (4.00-12.00) mmol/L BUN/Creatinine Ratio 21.22 H (12.00-20.00) Ratio POC Glucose (mg/dL) 169 H (70-110) mg/dL Triglycerides (0.00-149.00) mg/dL VLDL Cholesterol, Calc (5.00-40.00) mg/dL Vitamin B12 (200.0-944.0) pg/mL TSH (0.350-5.500) UIU/ML Assessment and Plan Time with Patient: Greater than 30
[2024-09-28] MEDS: SODIUM CHLORIDE 0.9% 1,000 ML IV SCH (12:55)
[2024-09-28] MEDS: LEVOTHYROXINE 25 MCG TAB PO SCH (13:51)
[2024-09-28 18:12] LABS: Glucose,Whole Blood 105 mg/dL (70-110)
[2024-09-28] MEDS: IBUPROFEN 400 MG TAB PO PRN (18:27)
[2024-09-28 20:28] LABS: Glucose,Whole Blood 181 mg/dL (70-110)
[2024-09-28] MEDS: BENZOCAINE/MENTHOL LOZENG 1 EACH LOZENGE MUCOUS MEM PRN (21:06)
[2024-09-29 06:06] LABS: Glucose,Whole Blood 117 mg/dL (70-110)
[2024-09-29] MEDS: Dulaglutide [Trulicity] 3 MG/0.5 ML Each SQ SCH (08:13)
[2024-09-29 09:22] LABS: Blood Urea Nitrogen 16.8 mg/dL (9.0-27.0); Calcium 8.7 mg/dL (8.7-10.3); Carbon Dioxide 23.3 mmol/L (21.6-31.8); Chloride 107 mmol/L (96-109); Glucose 94 mg/dL (70-110); Potassium 3.9 mmol/L (3.5-5.5); Sodium 141 mmol/L (135-145)
--- NOTE | 2024-09-29 10:33 | P.CRDCN ---
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 She has a past medical history of diabetes mellitus type 2. We have been asked to evaluate the patient for dizziness and vasovagal. Patient presented to the emergency center on 09/25 due to dizziness which had been going on for about 1 week and getting worse. She apparently had 2 falls at home and subsequently had neck and back pain. No weakness of her extremities. She was complaining of dizziness this morning. She does complain of a cough and is concerned that she may have COVID. She has been maintained on IV fluids at 50 cc/h and was started on midodrine at 5 mg twice daily by neurology. Blood pressure 116/62, heart rate 94, pulse ox 96% on room air. Temperature max is 101.3. Orthostatic vital signs obtained this morning are positive. -EKG: Sinus rhythm with no acute ST-T wave changes. -Laboratory studies: CBC INR, D-dimer unremarkable. Electrolytes and renal function within normal limits. Troponin negative x 1. Triglycerides 213, chol esterol 180, LDL 94. Cortisol 7.1. -Home cardiac medications: Farxiga 5 mg daily. -Echocardiogram performed 09/26/2024: Normal biventricular systolic function. Mild aortic regurgitation. No pericardial effusion. Review Of Systems: At the time of my exam: CONSTITUTIONAL: Denies fever or chills. Reports dizziness. HEENT: Denies blurred vision, vision changes, or eye pain. Denies hemoptysis CARDIOVASCULAR: Denies chest pain. Denies orthopnea. Denies PND. Denies palpitations RESPIRATORY: Denies shortness of breath. GASTROINTESTINAL: Denies abdominal pain. Denies nausea or vomiting. HEMATOLOGIC: Denies bleeding disorders. GENITOURINARY: Denies any blood in urine. SKIN: Denies puritis. Denies rash. Physical examination: Gen: This is a 64-year-old female in no acute distress VS: reviewed HEENT: Head is atraumatic, normocephalic. Pupils equal, round. Sclerae is anicteric. NECK: Supple. No JVD. LUNGS: Clear to auscultation. No wheezes or rhonchi. No intercostal retractions. HEART: Regular rate and rhythm. No murmur. ABDOMEN: Soft No tenderness. EXTREMITIES: No pedal edema. No calf tenderness. NEUROLOGICAL: Patient is awake, alert and oriented x3. Assessment: Diabetic autonomic dysfunction Dizziness with 2 falls at home Febrile illness Diabetes mellitus type 2 Plan: Obtain Cepheid viral panel screen Increase IV fluids 0.9 normal saline to 100 cc/h Increase midodrine frequency 5 mg to 3 times daily Further recommendations to follow based upon clinical course Thank you kindly for this consultation. Nurse practitioner note has been reviewed, I agree with documented findings and plan of care. Patient was seen and examined. Past Medical History Past Medical History: Diabetes Mellitus Additional Past Medical History / Comment(s): chronic nerve pain (stimulator in place in back); Septic from an open wound on left foot, left great toe removed in 2018; 2020 - COVID caused multiple blood clots in bilat lungs, had to be taken out. History of Any Multi-Drug Resistant Organisms: None Reported Past Surgical History: Cholecystectomy Additional Past Surgical History / Comment(s): toe surgery, nerve biopsy, PE removal Past Anesthesia/Blood Transfusion Reactions: No Reported Reaction Past Psychological History: PTSD Smoking Status: Former smoker Past Alcohol Use History: None Reported Past Drug Use History: Marijuana Medications and Allergies Home Medications Medication Instructions Recorded Confirmed Type ALPRAZolam [Xanax] 0.5 mg PO HS 09/25/24 09/25/24 History Dapagliflozin Propanediol [Farxiga] 5 mg PO HS 09/25/24 09/25/24 History Dulaglutide [Trulicity] 3 mg SQ MO 09/25/24 09/25/24 History Pregabalin [Lyrica] 100 mg PO BID 09/25/24 09/25/24 History buPROPion XL [Wellbutrin XL] 300 mg PO DAILY 09/25/24 09/25/24 History sitaGLIPtin [Januvia] 100 mg PO HS 09/25/24 09/25/24 History Allergies Allergy/AdvReac Type Severity Reaction Status Date / Time amitriptyline AdvReac Nausea & Verified 09/25/24 16:31 Vomiting gabapentin AdvReac Nausea & Verified 09/25/24 16:31 Vomiting Physical Exam Vitals: Vital Signs Temp Pulse Pulse Pulse Pulse Resp BP 09/29/24 07:00 101.3 F H 83 95 95 16 88/55 09/29/24 02:07 98.5 F 94 14 09/28/24 20:00 100.3 F H 105 H 109 H 99 15 98/55 09/28/24 18:07 100.0 F H 09/28/24 17:40 105 H 09/28/24 15:00 99.2 F 99 16 09/28/24 14:00 16 09/28/24 11:24 85 99 85 111/71 BP BP BP Pulse Ox 09/29/24 07:00 74/46 95/60 95 09/29/24 02:07 116/62 96 09/28/24 20:00 104/57 114/61 94 L 09/28/24 18:07 09/28/24 17:40 124/77 09/28/24 15:00 111/70 100 09/28/24 14:00 09/28/24 11:24 96/64 100/68 Intake and Output 09/28/24 09/29/24 09/29/24 22:59 06:59 14:59 Intake Total 240 221 Balance 240 221 Intake: Oral 240 221 Other: Voiding Method Toilet Toilet # Voids 2 1 Results 09/27/24 06:19 09/29/24 04:37 Comprehensive Metabolic Panel 09/29/24 Range/Units 04:37 Sodium 141 (135-145) mmol/L Potassium 3.9 (3.5-5.5) mmol/L Chloride 107 (96-109) mmol/L Carbon Dioxide 23.3 (21.6-31.8) mmol/L BUN 16.8 (9.0-27.0) mg/dL Creatinine 0.8 (0.6-1.5) mg/dL Glucose 94 (70-110) mg/dL Calcium 8.7 (8.7-10.3) mg/dL Current Medications Generic Name Dose Route Start Last Admin Trade Name Freq PRN Reason Stop Dose Admin Acetaminophen 650 mg 09/28/24 18:18 Acetaminophen Tab 325 Mg Tab PO Q6HR PRN Fever and/ or Pain Alprazolam 0.5 mg 09/25/24 21:00 09/28/24 21:06 Alprazolam 0.5 Mg Tab PO 0.5 mg HS MILTON Administration Benzocaine/Menthol 1 each 09/28/24 18:19 09/29/24 06:27 Benzocaine/Menthol Lozeng 1 Each Lozenge MUCOUS MEM 1 each Q4HR PRN Administration Sore Throat Bupropion HCl 300 mg 09/26/24 09:00 09/29/24 08:13 Bupropion Xl 300 Mg Tab.Er.24h PO 300 mg DAILY MILTON Administration Dapagliflozin 5 mg 09/25/24 21:00 09/28/24 21:05 Dapagliflozin Propanediol 5 Mg Tablet PO 5 mg HS MILTON Administration Dextrose/Water 25 ml 09/26/24 12:54 Dextrose 50% Syringe 50 Ml IVP PER PROTOCOL PRN Hypoglycemia Protocol Dextrose/Water 50 ml 09/26/24 12:54 Dextrose 50% Syringe 50 Ml IVP PER PROTOCOL PRN Hypoglycemia Protocol Sodium Chloride 1,000 mls @ 100 mls/hr 09/28/24 13:00 09/29/24 10:10 Saline 0.9% IV 100 mls/hr .Q10H MILTON Administration Ibuprofen 400 mg 09/28/24 18:18 09/29/24 06:39 Ibuprofen 400 Mg Tab PO 400 mg Q6HR PRN Administration Pain Insulin Human Lispro 0 unit 09/26/24 17:30 09/29/24 06:10 Insulin Lispro (Humalog) 100 Unit/Ml 10 Ml Vl SQ Not Given ACHS MILTON Protocol Levothyroxine Sodium 25 mcg 09/28/24 13:00 09/29/24 06:27 Levothyroxine 25 Mcg Tab PO Not Given DAILY@0630 MILTON Linagliptin 5 mg 09/25/24 21:00 09/28/24 21:24 Linagliptin 5 Mg Tablet PO 5 mg HS MILTON Administration Meclizine HCl 25 mg 09/25/24 16:17 09/27/24 15:32 Meclizine 25 Mg Tab PO 25 mg QID PRN Administration Vertigo Metoclopramide HCl 10 mg 09/25/24 17:30 09/29/24 06:27 Metoclopramide 10 Mg Tab PO 10 mg ACHS MILTON Administration Midodrine 5 mg 09/29/24 12:30 Midodrine 5 Mg Tab PO AC-TID MILTON Naloxone HCl 0.2 mg 09/25/24 16:19 Naloxone 0.4 Mg/Ml 1 Ml Vial IV Q2M PRN Opioid Reversal Dulaglutide [ 3 mg 09/29/24 09:00 09/29/24 08:13 Trulicity] 3 Mg/0.5 SQ Not Given Ml Each MO MILTON Pregabalin 100 mg 09/25/24 21:00 09/29/24 08:13 Pregabalin 100 Mg Cap PO 100 mg BID MILTON Administration Intake and Output 09/28/24 09/29/24 09/29/24 22:59 06:59 14:59 Intake Total 240 221 Balance 240 221 Intake: Oral 240 221 Other: Voiding Method Toilet Toilet # Voids 2 1 09/27/24 06:19 09/29/24 04:37
[2024-09-29 11:56] LABS: Influenza A Not Detected (Not Detectd); Influenza B Not Detected (Not Detectd); RSV Not Detected (Not Detectd)
[2024-09-29 12:01] LABS: Glucose,Whole Blood 160 mg/dL (70-110)
[2024-09-29] MEDS: MIDODRINE 5 MG TAB PO SCH (12:57)
[2024-09-29 17:24] LABS: Glucose,Whole Blood 158 mg/dL (70-110)
[2024-09-29] MEDS: CHOLECALCIFEROL 10 MCG (400 IU) TABLET PO SCH (17:59)
[2024-09-29] MEDS: ZINC SULFATE 220 MG CAP PO SCH (17:59)
[2024-09-29] MEDS: ASCORBIC ACID 500 MG TAB PO SCH (17:59)
[2024-09-29 18:58] LABS: Appearance,Urine Clear (Clear); Bilirubin,Urine Negative (Negative); Blood,Urine Negative (Negative); Color,Urine Colorless; Glucose,Urine (UA) 4+ (Negative); Ketones,Urine Trace (Negative); Leukocyte Esterase,Urine Negative (Negative); Nitrite,Urine Negative (Negative); Protein,Urine Negative (Negative); Specific Gravity,Urine 1.009 (1.001-1.035); Urobilinogen,Urine <2.0 mg/dL (<2.0)
[2024-09-29] MEDS: ACETAMINOPHEN TAB 325 MG TAB PO PRN (19:45)
[2024-09-29 21:14] LABS: Glucose,Whole Blood 113 mg/dL (70-110)
[2024-09-30 06:37] LABS: Glucose,Whole Blood 93 mg/dL (70-110)
--- NOTE | 2024-09-30 09:19 | P.PN ---
Subjective Progress Note Date: 09/29/24 History of present illness; patient is a 64-year-old lady with past medical history significant for diabetes mellitus, COVID-19 infection presented the ER because of worsening dizziness. Patient stated that she has been having dizziness for the last week. Dizziness is constant, denies any radiation with positioning of her head or moving from a sitting to a standing position. Patient denies any hearing loss. Patient did state that she fell twice over the course of last week and during 1 of those falls she hit her head resulting in significant neck and back pain. Patient was also complaining of headaches afterwards. Did not remember whether she passed out during those falls. There is no complaint of slurred speech. There is no complaint of weakness of any extremity. Because of persistent dizziness, patient came to the ER Initial lab work done in the ER showed WBC 7.4, hemoglobin 14.9, platelet count 272, sodium 142, potassium 4.2, BUN 16, creatinine 0.77, glucose 135, calcium 9.9, AST 23, ALT 23, troponin 0.012 EKG done in the ER showed heart rate of 86, no ST segment elevation or depression seen, no T-wave inversions seen. Chest x-ray done in the ER no acute cardiopulmonary process CT head done showed no acute intracranial process CT cervical spine done showed no acute cervical spine fracture CTA head and neck done showed no significant stenosis, aneurysm or thrombus in the intracranial circulation Patient admitted to internal medicine service 09/27/2024 Patient is evaluated today in follow up on the medical floor. Sitting up at the edge of the bed. Continues to have profound dizziness and unable to tolerate much activity and has been started on midodrine TID as patients orthostatic vitals were found to be positive from 126 systolic to 90 systolic when standing. Neurology not recommending to transfer for MRI at this time and felt it can be done on an outpatient basis. Sodium today 150, BUN 16.4, creatinine 0.8. TSH elevated 6.680. Echocardiogram revealing normal EF. and EEG with no seizure or epileptiform activity. 09/28/2024 Patient is evaluated today in follow up resting in bed. She is not having much peripheral edema. Continues to report significant intractible dizziness. She states she leaned over when on the toilet to pick something up and states she almost passed out. Midodrine was added yesterday and patient continues on meclizine q6h. Orthovitals are better. Sodium improved to 137, potassium 4.4, BUN 65.3, creatinine 2.9. AM cortisol 7.1. TSH 6.680 however free T4 1.19. Patient states she wants to get diagnosed she has been dizzy for over 2 years. Has undergone extensive work up at [facility] including tilt table testing vestibular testing etc. Had a brain MRI at one point and she cannot recall where this was done so unable to obtain reports. 09/29/2024 Patient is seen in follow-up today being followed by cardiology along with neurology. Patient continues to report she has dizziness and difficulty with ambulating and not feeling well requiring oxygen although does not wear oxygen at home. Will have PT/OT therapy evaluate the patient. Patient also reporting she continues with significant dizziness and is maintained on Antivert. Will obtain repeat COVID/influenza/RSV testing along with blood cultures. Cardiology making adjustments and has increased fluids will follow-up on repeat labs. REVIEW OF SYSTEMS: CONSTITUTIONAL: Reports of fever, no malaise, reports of fatigue. HEENT: No recent visual problems or hearing problems. Denied any sore throat. CARDIOVASCULAR: No chest pain, orthopnea, PND, no palpitations, no syncope. PULMONARY: No shortness of breath, no cough, no hemoptysis. GASTROINTESTINAL: No diarrhea, no nausea, no vomiting, no abdominal pain. NEUROLOGICAL: As mentioned above, reports of generalized weakness and inability to ambulate PHYSICAL EXAMINATION: GENERAL: The patient is alert and oriented x3, anxious. Well developed, well nourished. HEENT: Pupils are round and equally reacting to light. EOMI. No scleral icterus. No conjunctival pallor. Normocephalic, atraumatic. No pharyngeal erythema. No thyromegaly. CARDIOVASCULAR: S1 and S2 muffled PULMONARY: Diminished breath sounds bilaterally otherwise chest is clear to auscultation, no wheezing or crackles. ABDOMEN: Soft, nontender, nondistended, normoactive bowel sounds. No palpable organomegaly. MUSCULOSKELETAL: No joint swelling or deformity. EXTREMITIES: No cyanosis, clubbing, or pedal edema. Patient with mild peripheral edema NEUROLOGICAL: Gross neurological examination did not reveal any focal deficits. Diffusely weak SKIN: No rashes. Assessment: Dizziness with concern for BPPH possible autonomic dysfunction Positive orthostatic vitals started on oral midodrine Falls due to hypotension Syncope from above Acute COVID-19 infection, testing was positive today History of diabetes mellitus Elevated TSH and normal T4 Hypernatremia, hypovolemic GI prophylaxis DVT prophylaxis Full code Plan Recommend to continue with current medications and management. Cardiology consulted making adjustments to medications including increasing fluid and will follow-up on repeat labs Neurology following as well and will continue with current regimen. Will make Antivert scheduled as patient continues to report significant dizziness Recommend PT/OT therapy evaluation Patient reports she is not feeling well having increased congestion and some low-grade fevers. Virology testing done including COVID, RSV, influenza and pa tient is positive for COVID. Will add vitamin and zinc supplements Overall prognosis is guarded Dictation was produced using [employer] dictation software. please excuse any grammatical, word or spelling errors. The impression and plan of care has been dictated by Nurse Jacobo Bryant as directed. Dr. Ki MD I have performed a history and physical examination and medical decision making of this patient, discussed the same with the dictator, and agree with the dictat ors assessment and plan as written, documented as a scribe. Based on total visit time, I have performed more than 50% of this visit. Objective - Vital Signs Vital signs: Vital Signs Temp 101.3 F H 09/29/24 07:00 Pulse 95 09/29/24 07:00 Resp 16 09/29/24 07:00 BP 95/60 09/29/24 07:00 Pulse Ox 95 09/29/24 07:00 FiO2 Intake & Output 09/28/24 09/29/24 09/29/24 18:59 06:59 18:59 Intake Total 476 221 Balance 476 221 Intake: Oral 476 221 Other: Voiding Method Toilet Toilet # Voids 3 1 # Bowel Movements 1 - Labs CBC & Chem 7: 09/27/24 06:19 09/29/24 04:37 Labs: Abnormal Lab Results - Last 24 Hours (Table) 09/28/24 09/28/24 09/29/24 Range/Units 11:55 20:26 04:37 BUN/Creatinine Ratio 21.00 H (12.00-20.00) Ratio POC Glucose (mg/dL) 169 H 181 H (70-110) mg/dL 03/17/25 Range/Units 06:05 BUN/Creatinine Ratio (12.00-20.00) Ratio POC Glucose (mg/dL) 117 H (70-110) mg/dL
[2024-09-30 09:20] LABS: Basophils # (A) 0.04 X 10*3/uL (0.00-0.10); Basophils % (A) 0.4 %; Eosinophils # (A) 0.04 X 10*3/uL (0.04-0.35); Eosinophils % (A) 0.4 %; HCT 38.3 % (37.2-46.3); HGB 12.7 g/dL (12.0-15.0); Lymphocytes # (A) 1.24 X 10*3/uL (0.90-5.00); Lymphocytes % (A) 11.7 %; MCH 30.7 pg (27.0-32.0); MCHC 33.2 g/dL (32.0-37.0); MCV 92.5 FL (80.0-97.0); Mean Platelet Volume 11.4 FL (9.5-12.2); Monocytes % (A) 6.6 %; NRBC Per 100 WBC 0 X 10*3/uL (0.00-0.01); Neutrophils # (A) 8.56 X 10*3/uL (1.80-7.70); Neutrophils % (A) 80.4 %; Platelet Count 178 X 10*3/uL (140-440); RBC 4.14 X 10*6/uL (4.10-5.20); RDW 13.5 % (11.5-14.5); WBC 10.63 X 10*3/uL (4.50-10.00)
[2024-09-30 09:54] LABS: ALT 17 U/L (8-44); AST 21 U/L (13-35); Albumin 3.5 g/dL (3.8-4.9); Alkaline Phosphatase 58 U/L (41-126); Blood Urea Nitrogen 17.6 mg/dL (9.0-27.0); Calcium 8.6 mg/dL (8.7-10.3); Chloride 110 mmol/L (96-109); Globulin 2.5 g/dL (1.6-3.3); Glucose 91 mg/dL (70-110); Potassium 3.7 mmol/L (3.5-5.5); Sodium 143 mmol/L (135-145); Total Bilirubin 0.4 mg/dL (0.3-1.2)
[2024-09-30 10:10] LABS: Erythrocyte Sedimentation Rate 33 mm/Hr (0-30)
[2024-09-30] MEDS: MECLIZINE 25 MG TAB PO SCH (12:22)
[2024-09-30 12:31] LABS: Glucose,Whole Blood 117 mg/dL (70-110)
--- NOTE | 2024-09-30 13:40 | P.PN ---
Subjective Progress Note Date: 09/30/24 Reason for Consult (text): Dizziness, vasovagal History of present illness: This is a 64-year-old female with no previous cardiac history and does not fol low with a cylindrical mixer. She has a past medical history of diabetes mellitus type 2. We have been asked to evaluate the patient for dizziness and vasovagal. Patient presented to the emergency center on 09/25 due to dizziness which had been going on for about 1 week and getting worse. She apparently had 2 falls at home and subsequently had neck and back pain. No weakness of her extremities. She was complaining of dizziness this morning. She does complain of a cough and is concerned that she may have COVID. She has been maintained on IV fluids at 50 cc/h and was started on midodrine at 5 mg twice daily by neurology. Blood pressure 116/62, heart rate 94, pulse ox 96% on room air. Temperature max is 101.3. Orthostatic vital signs obtained this morning are positive. -EKG: Sinus rhythm with no acute ST-T wave changes. -Laboratory studies: CBC INR, D-dimer unremarkable. Electrolytes and renal function within normal limits. Troponin negative x 1. Triglycerides 213, cholesterol 180, LDL 94. Cortisol 7.1. -Home cardiac medications: Farxiga 5 mg daily. -Echocardiogram performed 09/26/2024: Normal biventricular systolic function. Mild aortic regurgitation. No pericardial effusion. 09/30 Patient seen and examined. Testing came back positive yesterday for COVID. Patient is now in isolation. She is on IV fluids which we will continue. Temperature max 101.7, heart rate 90, blood pressure 92/52, pulse ox 94% on 3 L. Physical examination: Gen: This is a 64-year-old female in no acute distress VS: reviewed HEENT: Head is atraumatic, normocephalic. Pupils equal, round. Sclerae is anicteric. NECK: Supple. No JVD. LUNGS: Clear to auscultation. No wheezes or rhonchi. No intercostal retractions. HEART: Regular rate and rhythm. No murmur. ABDOMEN: Soft No tenderness. EXTREMITIES: No pedal edema. No calf tenderness. NEUROLOGICAL: Patient is awake, alert and oriented x3. Assessment: COVID-19 infection Diabetic autonomic dysfunction Dizziness with 2 falls at home Febrile illness Diabetes mellitus type 2 Plan: Continue IV fluids 0.9 normal saline and decreased to 75 cc/h Continue increased midodrine 3 times daily No further cardiac workup is planned at this time. Nurse practitioner note has been reviewed, I agree with documented findings and plan of care. Patient was seen and examined. Objective - Vital Signs Vital signs: Vital Signs Temp 98.4 F 09/30/24 02:39 Pulse 95 09/30/24 02:39 Resp 18 09/30/24 02:39 BP 92/52 09/30/24 02:39 Pulse Ox 94 L 09/30/24 02:39 FiO2 Intake & Output 09/29/24 09/30/24 09/30/24 18:59 06:59 18:59 Intake Total 442 Balance 442 Intake: Oral 442 Other: # Voids 1 2 - Labs CBC & Chem 7: 10/01/24 04:52 10/01/24 04:52 Labs: Abnormal Lab Results - Last 24 Hours (Table) 09/29/24 09/29/24 09/29/24 Range/Units 04:37 10:14 11:59 BUN/Creatinine Ratio 21.00 H (12.00-20.00) Ratio POC Glucose (mg/dL) 160 H (70-110) mg/dL Urine Glucose (UA) (Negative) Urine Ketones (Negative) SARS-CoV-2 (PCR) Detected A (Not Detectd) 09/29/24 09/29/24 09/29/24 Range/Units 17:23 18:47 21:13 BUN/Creatinine Ratio (12.00-20.00) Ratio POC Glucose (mg/dL) 158 H 113 H (70-110) mg/dL Urine Glucose (UA) 4+ H (Negative) Urine Ketones Trace H (Negative) SARS-CoV-2 (PCR) (Not Detectd)
[2024-09-30 17:38] LABS: Glucose,Whole Blood 125 mg/dL (70-110)
[2024-09-30] MEDS: ENOXAPARIN 40 MG/0.4 ML SYRINGE SQ SCH (17:50)
--- NOTE | 2024-09-30 17:50 | CT ---
EXAMINATION TYPE: CT chest angio for PE DATE OF EXAM: 09/30/2024 5:36 PM COMPARISON: None. CLINICAL INDICATION: Female, 64 years old with history of covid, elevated d dimer; COVID positive, hi gh dimer, history of PE TECHNIQUE/CONTRAST: CTA scan of the thorax is performed with IV Contrast, patient injected with 65 mL of Isovue 370, MIP images are created and reviewed these are created on a separate workstation.. CT DLP: 383.8 mGycm, Automated exposure control for dose reduction was used. FINDINGS: Pulmonary Artery: There is no evidence for a filling defect within the pulmonary vasculature to sugge st acute pulmonary embolism. The pulmonary artery is of normal size. Lungs/Pleura: Nodular groundglass and consolidative opacities throughout the bilateral lower lungs, m ost pronounced in the medial aspect of the left lower lobe where there is consolidation. Tree-in-bud nodularity and mucous plugging also noted with bronchial wall thickening. No sizable pleural effusion . No pneumothorax. Heart: Heart is within normal limits for size. Coronary artery calcifications. Vasculature: No evidence of aortic aneurysm. Mediastinum: Mildly prominent mediastinal and bilateral hilar lymph nodes, possibly reactive in etiol ogy. Musculoskeletal: No acute osseous abnormalities. Partially visualized spinal stimulator device. Soft Tissues/lymph nodes: Unremarkable. Lower neck: No significant findings. Upper Abdomen: No significant acute findings. Gallbladder is surgically absent. IMPRESSION: 1. No evidence of acute pulmonary embolism. 2. Findings consistent with multifocal pneumonia and infectious bronchitis/bronchiolitis. Consider o utpatient follow-up imaging after treatment course to document resolution. 3. Mildly prominent mediastinal and hilar lymph nodes, possibly reactive in etiology. [facility], , 09/30/2024 5:48 PM
[2024-09-30 20:47] LABS: Glucose,Whole Blood 113 mg/dL (70-110)
--- NOTE | 2024-10-01 05:34 | P.PN ---
Subjective Progress Note Date: 09/30/24 History of present illness; patient is a 64-year-old lady with past medical history significant for diabetes mellitus, COVID-19 infection presented the ER because of worsening dizziness. Patient stated that she has been having dizziness for the last week. Dizziness is constant, denies any radiation with positioning of her head or moving from a sitting to a standing position. Patient denies any hearing loss. Patient did state that she fell twice over the course of last week and during 1 of those falls she hit her head resulting in significant neck and back pain. Patient was also complaining of headaches afterwards. Did not remember whether she passed out during those falls. There is no complaint of slurred speech. There is no complaint of weakness of any extremity. Because of persistent dizziness, patient came to the ER Initial lab work done in the ER showed WBC 7.4, hemoglobin 14.9, platelet count 272, sodium 142, potassium 4.2, BUN 16, creatinine 0.77, glucose 135, calcium 9.9, AST 23, ALT 23, troponin 0.012 EKG done in the ER showed heart rate of 86, no ST segment elevation or depression seen, no T-wave inversions seen. Chest x-ray done in the ER no acute cardiopulmonary process CT head done showed no acute intracranial process CT cervical spine done showed no acute cervical spine fracture CTA head and neck done showed no significant stenosis, aneurysm or thrombus in the intracranial circulation Patient admitted to internal medicine service 09/27/2024 Patient is evaluated today in follow up on the medical floor. Sitting up at the edge of the bed. Continues to have profound dizziness and unable to tolerate much activity and has been started on midodrine TID as patients orthostatic vitals were found to be positive from 126 systolic to 90 systolic when standing. Neurology not recommending to transfer for MRI at this time and felt it can be done on an outpatient basis. Sodium today 150, BUN 16.4, creatinine 0.8. TSH elevated 6.680. Echocardiogram revealing normal EF. and EEG with no seizure or epileptiform activity. 09/28/2024 Patient is evaluated today in follow up resting in bed. She is not having much peripheral edema. Continues to report significant intractible dizziness. She states she leaned over when on the toilet to pick something up and states she almost passed out. Midodrine was added yesterday and patient continues on meclizine q6h. Orthovitals are better. Sodium improved to 137, potassium 4.4, BUN 65.3, creatinine 2.9. AM cortisol 7.1. TSH 6.680 however free T4 1.19. Patient states she wants to get diagnosed she has been dizzy for over 2 years. Has undergone extensive work up at [facility] including tilt table testing vestibular testing etc. Had a brain MRI at one point and she cannot recall where this was done so unable to obtain reports. 09/29/2024 Patient is seen in follow-up today being followed by cardiology along with neurology. Patient continues to report she has dizziness and difficulty with ambulating and not feeling well requiring oxygen although does not wear oxygen at home. Will have PT/OT therapy evaluate the patient. Patient also reporting she continues with significant dizziness and is maintained on Antivert. Will obtain repeat COVID/influenza/RSV testing along with blood cultures. Cardiology making adjustments and has increased fluids will follow-up on repeat labs. 09/30/2024 Patient is seen in follow-up today reports to feeling unwell not tolerating much diet with nausea and generalized weakness. Patient was noted to be positive for COVID and will continue with supportive care including vitamin and zinc supplementation. Will consult infectious disease as patient recently had COVID. Patient continues on 2 to 3 L via nasal cannula and does not normally wear oxygen outpatient, encouraged incentive spirometer use and increased activity as tolerated. Patient is not getting up out of bed very often and have encouraged the patient to sit up in the chair more frequently. Will obtain a D-dimer for further evaluation. REVIEW OF SYSTEMS: CONSTITUTIONAL: Reports of fever, no malaise, reports of fatigue. HEENT: No recent visual problems or hearing problems. Denied any sore throat. CARDIOVASCULAR: No chest pain, orthopnea, PND, no palpitations, no syncope. PULMONARY: Reports of shortness of breath, occasional cough, no hemoptysis. GASTROINTESTINAL: No diarrhea, reports nausea and not much of an appetite, no vomiting, no abdominal pain. NEUROLOGICAL: As mentioned above, reports of generalized weakness and inability to ambulate PHYSICAL EXAMINATION: GENERAL: The patient is alert and oriented x3. Well developed, well nourished. Ill-appearing HEENT: Pupils are round and equally reacting to light. EOMI. No scleral icterus. No conjunctival pallor. Normocephalic, atraumatic. No pharyngeal erythema. No thyromegaly. CARDIOVASCULAR: S1 and S2 muffled PULMONARY: Diminished breath sounds bilaterally otherwise chest is clear to auscultation, no wheezing or crackles. ABDOMEN: Soft, nontender, nondistended, normoactive bowel sounds. No palpable organomegaly. MUSCULOSKELETAL: No joint swelling or deformity. EXTREMITIES: No cyanosis, clubbing, or pedal edema. Patient with mild peripheral edema NEUROLOGICAL: Gross neurological examination did not reveal any focal deficits. Diffusely weak SKIN: No rashes. Assessment: Dizziness with concern for BPPV possible autonomic dysfunction Positive orthostatic vitals started on oral midodrine [place] due to hypotension Syncope from above Acute COVID-19 infection, testing was positive today 09/29/2024 Acute hypoxic respiratory failure, possibly secondary to acute COVID-19 Elevated D-dimer, PE ruled out per CTA History of diabetes mellitus Elevated TSH and normal T4 Hypernatremia, hypovolemic GI prophylaxis DVT prophylaxis Full code Plan Recommend to continue with current medications and management. Cardiology following and making adjustments to medications including increasing fluid and will follow-up on repeat labs Neurology following as well and will continue with current regimen. Continue with Antivert scheduled as patient continues to report significant dizziness Recommend PT/OT therapy evaluation and encouraged increase activity as tolerated and sitting up in the chair is more frequently Patient reports she is not feeling well having increased congestion and some low-grade fevers. Virology testing done including COVID, RSV, influenza and patient is positive for COVID. Will continue vitamin and zinc supplements. Consult to infectious disease and appreciate input and recommendations D-dimer was positive and CTA not suggestive of any PE Encourage incentive spirometer use at least 10 times every hour while awake and wean FiO2 as tolerated. Overall prognosis is guarded Dictation was produced using [employer] dictation software. please excuse any grammatical, word or spelling errors. The impression and plan of care has been dictated by Marietta Cox, Nurse Practitioner as directed. Dr. Ki MD I have performed a history and physical examination and medical decision making of this patient, discussed the same with the dictator, and agree with the dictators assessment and plan as written, documented as a scribe. Based on total visit time, I have performed more than 50% of this visit. Objective - Vital Signs Vital signs: Vital Signs Temp 98.2 F 09/30/24 08:20 Pulse 90 09/30/24 08:20 Resp 16 09/30/24 08:20 BP 89/52 09/30/24 08:20 Pulse Ox 90 L 09/30/24 08:20 FiO2 Intake & Output 09/29/24 09/30/24 09/30/24 18:59 06:59 18:59 Intake Total 442 Balance 442 Intake: Oral 442 Other: # Voids 1 2 - Labs CBC & Chem 7: 09/30/24 03:53 09/30/24 03:53 Labs: Abnormal Lab Results - Last 24 Hours (Table) 09/29/24 09/29/24 09/29/24 Range/Units 04:37 10:14 11:59 BUN/Creatinine Ratio 21.00 H (12.00-20.00) Ratio POC Glucose (mg/dL) 160 H (70-110) mg/dL C-Reactive Protein (0.00-0.80) mg/dL Urine Glucose (UA) (Negative) Urine Ketones (Negative) SARS-CoV-2 (PCR) Detected A (Not Detectd) 09/29/24 09/29/24 09/29/24 Range/Units 17:23 18:47 21:13 BUN/Creatinine Ratio (12.00-20.00) Ratio POC Glucose (mg/dL) 158 H 113 H (70-110) mg/dL C-Reactive Protein (0.00-0.80) mg/dL Urine Glucose (UA) 4+ H (Negative) Urine Ketones Trace H (Negative) SARS-CoV-2 (PCR) (Not Detectd) 09/30/24 Range/Units 03:53 BUN/Creatinine Ratio (12.00-20.00) Ratio POC Glucose (mg/dL) (70-110) mg/dL C-Reactive Protein 10.90 H (0.00-0.80) mg/dL Urine Glucose (UA) (Negative) Urine Ketones (Negative) SARS-CoV-2 (PCR) (Not Detectd)
[2024-10-01 06:18] LABS: Glucose,Whole Blood 78 mg/dL (70-110)
[2024-10-01 08:28] LABS: Basophils # (A) 0.04 X 10*3/uL (0.00-0.10); Basophils % (A) 0.5 %; Eosinophils # (A) 0.05 X 10*3/uL (0.04-0.35); Eosinophils % (A) 0.6 %; HCT 36.1 % (37.2-46.3); HGB 11.7 g/dL (12.0-15.0); Lymphocytes # (A) 0.88 X 10*3/uL (0.90-5.00); Lymphocytes % (A) 11.1 %; MCH 29.8 pg (27.0-32.0); MCHC 32.4 g/dL (32.0-37.0); MCV 92.1 FL (80.0-97.0); Mean Platelet Volume 11.5 FL (9.5-12.2); Monocytes % (A) 10.1 %; NRBC Per 100 WBC 0 X 10*3/uL (0.00-0.01); Neutrophils # (A) 6.12 X 10*3/uL (1.80-7.70); Neutrophils % (A) 77.2 %; Platelet Count 158 X 10*3/uL (140-440); RBC 3.92 X 10*6/uL (4.10-5.20); RDW 13.6 % (11.5-14.5); WBC 7.93 X 10*3/uL (4.50-10.00)
[2024-10-01 08:55] VITALS: PULSE 84
[2024-10-01 09:07] LABS: BUN/Creat Ratio 23.17 Ratio (12.00-20.00); Blood Urea Nitrogen 13.9 mg/dL (9.0-27.0); Calcium 8.3 mg/dL (8.7-10.3); Carbon Dioxide 17.7 mmol/L (21.6-31.8); Chloride 109 mmol/L (96-109); Glucose 79 mg/dL (70-110); Potassium 3.8 mmol/L (3.5-5.5); Sodium 141 mmol/L (135-145)
--- NOTE | 2024-10-01 10:16 | P.PN ---
Subjective Progress Note Date: 10/01/24 Reason for Consult (text): Dizziness, vasovagal History of present illness: This is a 64-year-old female with no previous cardiac history and does not fol low with a gauge maker. She has a past medical history of diabetes mellitus type 2. We have been asked to evaluate the patient for dizziness and vasovagal. Patient presented to the emergency center on 09/25 due to dizziness which had been going on for about 1 week and getting worse. She apparently had 2 falls at home and subsequently had neck and back pain. No weakness of her extremities. She was complaining of dizziness this morning. She does complain of a cough and is concerned that she may have COVID. She has been maintained on IV fluids at 50 cc/h and was started on midodrine at 5 mg twice daily by neurology. Blood pressure 116/62, heart rate 94, pulse ox 96% on room air. Temperature max is 101.3. Orthostatic vital signs obtained this morning are positive. -EKG: Sinus rhythm with no acute ST-T wave changes. -Laboratory studies: CBC INR, D-dimer unremarkable. Electrolytes and renal function within normal limits. Troponin negative x 1. Triglycerides 213, cholesterol 180, LDL 94. Cortisol 7.1. -Home cardiac medications: Farxiga 5 mg daily. -Echocardiogram performed 09/26/2024: Normal biventricular systolic function. Mild aortic regurgitation. No pericardial effusion. 09/30 Patient seen and examined. Testing came back positive yesterday for COVID. Patient is now in isolation. She is on IV fluids which we will continue. Temperature max 101.7, heart rate 90, blood pressure 92/52, pulse ox 94% on 3 L. 10/01 Patient seen and examined. CTA of the chest ruled out pulmonary embolism. Findings were consistent with multifocal pneumonia and infectious bronchitis or bronchiolitis. Patient continues to have a cough. Fevers are improving. She denies chest pain and no shortness of breath. Blood pressure readings are improved. We did start her on midodrine during this hospital stay. We have also asked for her to continue on IV fluids. Blood pressure 109/63, heart rate 92, pulse ox 96% on room air. Repeat blood work reveals WBC 7.9, hemoglobin 1.7, creatinine 0.6. Procalcitonin 0.21. Physical examination: Gen: This is a 64-year-old female in no acute distress VS: reviewed HEENT: Head is atraumatic, normocephalic. Pupils equal, round. Sclerae is a nicteric. NECK: Supple. No JVD. LUNGS: Diminished breath sounds. No wheezes or rhonchi. No intercostal retractions. HEART: Regular rate and rhythm. No murmur. ABDOMEN: Soft No tenderness. EXTREMITIES: No pedal edema. No calf tenderness. NEUROLOGICAL: Patient is awake, alert and oriented x3. Assessment: COVID-19 infection and pneumonia Diabetic autonomic dysfunction Dizziness with 2 falls at home Febrile illness Diabetes mellitus type 2 Plan: Continue IV fluids 0.9 normal saline at 75 cc/h Continue increased midodrine 3 times daily Patient is cleared for discharge from a cardiology perspective once cleared by medicine. Nurse practitioner note has been reviewed, I agree with documented findings and plan of care. Patient was seen and examined. Objective - Vital Signs Vital signs: Vital Signs Temp 99 F 10/01/24 07:25 Pulse 92 10/01/24 07:25 Resp 16 10/01/24 07:25 BP 109/63 10/01/24 07:25 Pulse Ox 96 10/01/24 07:25 FiO2 Intake & Output 09/30/24 10/01/24 10/01/24 18:59 06:59 18:59 Intake Total 118 Balance 118 Intake: Oral 118 Other: Voiding Method Toilet Toilet # Voids 1 3 - Labs CBC & Chem 7: 10/01/24 04:52 10/01/24 04:52 Labs: Abnormal Lab Results - Last 24 Hours (Table) 09/27/24 09/30/24 09/30/24 Range/Units 06:19 03:53 03:53 WBC 10.63 H (4.50-10.00) X 10*3/uL Immature Gran # 0.05 H (0.00-0.04) X 10*3/uL Neutrophils # 8.56 H (1.80-7.70) X 10*3/uL ESR 33 H (0-30) mm/Hr D-Dimer (<0.60) mg/L FEU Chloride 110 H (96-109) mmol/L Carbon Dioxide 21.0 L (21.6-31.8) mmol/L BUN/Creatinine Ratio 22.00 H (12.00-20.00) Ratio POC Glucose (mg/dL) (70-110) mg/dL Calcium 8.6 L (8.7-10.3) mg/dL C-Reactive Protein 10.90 H (0.00-0.80) mg/dL Total Protein 6.0 L (6.2-8.2) g/dL Albumin 3.5 L (3.8-4.9) g/dL Albumin/Globulin Ratio 1.40 L (1.60-3.17) Ratio Vitamin B6 60 H (5-50) ug/L 09/30/24 09/30/24 09/30/24 Range/Units 12:29 12:54 17:33 WBC (4.50-10.00) X 10*3/uL Immature Gran # (0.00-0.04) X 10*3/uL Neutrophils # (1.80-7.70) X 10*3/uL ESR (0-30) mm/Hr D-Dimer 1.62 H (<0.60) mg/L FEU Chloride (96-109) mmol/L Carbon Dioxide (21.6-31.8) mmol/L BUN/Creatinine Ratio (12.00-20.00) Ratio POC Glucose (mg/dL) 117 H 125 H (70-110) mg/dL Calcium (8.7-10.3) mg/dL C-Reactive Protein (0.00-0.80) mg/dL Total Protein (6.2-8.2) g/dL Albumin (3.8-4.9) g/dL Albumin/Globulin Ratio (1.60-3.17) Ratio Vitamin B6 (5-50) ug/L 09/30/24 Range/Units 20:46 WBC (4.50-10.00) X 10*3/uL Immature Gran # (0.00-0.04) X 10*3/uL Neutrophils # (1.80-7.70) X 10*3/uL ESR (0-30) mm/Hr D-Dimer (<0.60) mg/L FEU Chloride (96-109) mmol/L Carbon Dioxide (21.6-31.8) mmol/L BUN/Creatinine Ratio (12.00-20.00) Ratio POC Glucose (mg/dL) 113 H (70-110) mg/dL Calcium (8.7-10.3) mg/dL C-Reactive Protein (0.00-0.80) mg/dL Total Protein (6.2-8.2) g/dL Albumin (3.8-4.9) g/dL Albumin/Globulin Ratio (1.60-3.17) Ratio Vitamin B6 (5-50) ug/L Microbiology - Last 24 Hours (Table) 09/29/24 16:41 Blood Culture - Preliminary Blood
[2024-10-01 12:21] LABS: Glucose,Whole Blood 136 mg/dL (70-110)
[2024-10-01 14:21] VITALS: BP 114/72; RESP 17; TEMP 98.3
[2024-10-01] MEDS: CEFEPIME 2 GM in SODIUM CHLORIDE 0.9% 100 ML IVPB SCH (15:46)
== END 2024-10-01 16:30 | disposition home or self-care (01) | DRG 73 ==
LOC: EC 12:17 → 6NMEDSUR 16:20 → OBSVTOIN 16:21 → 6NMEDSUR 20:21
PROVIDERS: ADMIT Internal Medicine; ATTEND Internal Medicine
PROC: 8E0ZXY6 Isolation (ICD-10-PCS; principal; 2024-09-30)
DX: E11.43 Type 2 diabetes mellitus with diabetic autonomic (poly)neuropathy (principal); J12.82 Pneumonia due to coronavirus disease 2019; J96.01 Acute respiratory failure with hypoxia; U07.1 COVID-19; E87.0 Hyperosmolality and hypernatremia; E78.1 Pure hyperglyceridemia; I95.1 Orthostatic hypotension; E86.1 Hypovolemia; F43.10 Post-traumatic stress disorder, unspecified; M54.2 Cervicalgia; M54.9 Dorsalgia, unspecified; R27.0 Ataxia, unspecified; R94.6 Abnormal results of thyroid function studies; Z79.84 Long term (current) use of oral hypoglycemic drugs; Z79.85 Long-term (current) use of injectable non-insulin antidiabetic drugs; Z79.899 Other long term (current) drug therapy; Z96.82 Presence of neurostimulator; Z87.891 Personal history of nicotine dependence; Z86.16 Personal history of COVID-19; Z88.8 Allergy status to other drugs, medicaments and biological substances; W19.XXXA Unspecified fall, initial encounter; Y92.009 Unspecified place in unspecified non-institutional (private) residence as the place of occurrence of the external cause
CPT/HCPCS: 36415; 70450; 70496; 70498; 71046; 71275; 72125; 80048; 80053; 80061; 81003; 82533; 82607; 82746; 83036; 83735; 84145; 84207; 84439; 84443; 84484; 85025; 85379; 85610; 85652; 85730; 86140; 87040; 87636; 93005; 93306; 94760; 95816; 96361; 96374; 99285